=== PATIENT | male | born 1960 | race Caucasian/White ===

== ENCOUNTER 2017-11-12 14:02 | Inpatient (IN) | payer OTHER ==
[2017-11-12] MEDS: IBUPROFEN 600 MG TAB PO (16:30)
[2017-11-12] MEDS: PIPER-TAZO 3.375 GM IV (PMX) 100 ML IVPB (16:30)
[2017-11-12] MEDS: SODIUM CHLORIDE 0.9% 1L BAG IV* (16:30)
[2017-11-12 16:44] LABS: ADD MAN DIFF? NO
[2017-11-12 16:45] LABS: BASOPHIL # 0.1 10^3/ul (0.0-0.1); BASOPHILS % 0.4 % (0.0-2.0); EOSINOPHILS % 0.4 % (0.0-7.0); HEMOGLOBIN 12.5 g/dl (14.0-18.0); LYMPHOCYTES # 2.1 10^3/ul (0.8-2.9); LYMPHOCYTES % 18.5 % (15.0-51.0); MEAN CORPUSCULAR HEMOGLOBIN 30.5 pg (29.0-33.0); MEAN CORPUSCULAR HGB CONC 33.8 g/dl (32.0-37.0); MEAN CORPUSCULAR VOLUME 90.2 fl (82.0-101.0); MEAN PLATELET VOLUME 9.7 fl (7.4-10.4); MONOCYTE # 1.3 10^3/ul (0.3-0.9); MONOCYTES % 11.9 % (0.0-11.0); NEUTROPHIL # 7.6 10^3/ul (1.6-7.5); NEUTROPHILS % 68.5 % (39.0-77.0); PLATELET COUNT 252 10^3/UL (140-415); RED CELL DISTRIBUTION WIDTH 12.9 % (11.5-14.5)
[2017-11-12 16:45] LABS: WHITE BLOOD COUNT 11.2 10^3/ul (4.8-10.8)
[2017-11-12 17:04] LABS: INR 1.11; PARTIAL THROMBOPLASTIN TIME 31.5 Sec (25.0-35.0); PROTIME 14.5 Sec (11.9-14.9); PT RATIO 1.1
[2017-11-12 17:06] LABS: LACTIC ACID 1.2 mmol/L (0.5-2.0)
[2017-11-12 17:07] LABS: ALANINE AMINOTRANSFERASE 17 IU/L (13-69); ALBUMIN 4.1 g/dl (3.3-4.9); ALBUMIN/GLOBULIN RATIO 1.13; ALKALINE PHOSPHATASE 66 IU/L (42-121); ANION GAP 17 (8-16); ASPARTATE AMINO TRANSFERASE 12 IU/L (15-46); BILIRUBIN,INDIRECT 2.4 mg/dl (0-1.1); BILIRUBIN,TOTAL 2.4 mg/dl (0.2-1.3); BLOOD UREA NITROGEN 31 mg/dl (7-20); CALCIUM 9.1 mg/dl (8.4-10.2); CARBON DIOXIDE 27 mmol/L (21-31); CHLORIDE 99 mmol/L (97-110); CREATININE 1.29 mg/dl (0.61-1.24); GLUCOSE 174 mg/dl (70-220); LIPASE 104 U/L (23-300); POTASSIUM 4.6 mmol/L (3.5-5.1); SODIUM 138 mmol/L (135-144); TOTAL PROTEIN 7.7 g/dl (6.1-8.1)
[2017-11-12 17:34] LABS: TROPONIN-I < 0.012 ng/ml (0.000-0.120)
[2017-11-12 18:57] LABS: ADD UMIC NO; UR ASCORBIC ACID NEGATIVE (NEGATIVE); UR BILIRUBIN (Dip) NEGATIVE (NEGATIVE); UR BLOOD (Dip) NEGATIVE (NEGATIVE); UR CLARITY CLEAR (CLEAR); UR COLOR YELLOW (YELLOW); UR GLUCOSE (Dip) 2+ mg/dL (NEGATIVE); UR KETONES (Dip) NEGATIVE (NEGATIVE); UR LEUKOCYTE ESTERASE (Dip) NEGATIVE Leu/ul (NEGATIVE); UR NITRITE (Dip) NEGATIVE (NEGATIVE); UR SPECIFIC GRAVITY (Dip) 1.013 (1.003-1.030); UR TOTAL PROTEIN (Dip) NEGATIVE (NEGATIVE); UR UROBILINOGEN (Dip) NEGATIVE (NEGATIVE)
[2017-11-12] MEDS ORDERED: GLUCOSE GEL 15 GRAM TUBE PO ×2 (19:30)
[2017-11-12] MEDS ORDERED: DEXTROSE 50% 50 ML SYRINGE IV ×2 (19:30)
[2017-11-12] MEDS ORDERED: NACL 0.9% 3 ML SYG IV (19:30)
[2017-11-12] MEDS ORDERED: GLUCOSE GEL 15 GRAM TUBE BUCCAL (19:30)
[2017-11-12] MEDS ORDERED: GLUCAGON 1 MG INJ IM (19:30)
[2017-11-12] MEDS: metFORMIN 500 MG TAB PO ×2 (19:30→22:56)
[2017-11-12] MEDS ORDERED: INSULIN GLARGINE [LANtus] 3 ML PEN SC (20:00)
[2017-11-12] MEDS: INSULIN GLARGINE [LANtus] 3 ML PEN SC ×2 (20:00→23:47)
[2017-11-12] MEDS: INSULIN ASPART [NOVOLOG] 3 ML PEN SC (21:00)
[2017-11-12] MEDS ORDERED: COLLAGENASE 5 GM (UD JAR) TOP (21:30)
[2017-11-12] MEDS ORDERED: PENDING SANTYL ORDER FOR WOUND CARE XX (21:30)
[2017-11-12] MEDS: ATORVASTATIN 10 MG TAB PO (22:57)
[2017-11-12] MEDS: GABAPENTIN 100 MG CAP PO (22:58)
[2017-11-12] MEDS: COLLAGENASE 5 GM (UD JAR) TOP (22:59)
[2017-11-13] MEDS: HYDROCODONE/APAP (5/325) TAB PO (00:48)
[2017-11-13 05:55] LABS: ADD MAN DIFF? NO
[2017-11-13 06:03] LABS: BASOPHIL # 0.1 10^3/ul (0.0-0.1); BASOPHILS % 0.6 % (0.0-2.0); EOSINOPHILS # 0.3 10^3/ul (0.0-0.5); EOSINOPHILS % 2.9 % (0.0-7.0); HEMATOCRIT 36.3 % (42.0-52.0); HEMOGLOBIN 12.3 g/dl (14.0-18.0); LYMPHOCYTES # 2.6 10^3/ul (0.8-2.9); LYMPHOCYTES % 28.5 % (15.0-51.0); MEAN CORPUSCULAR HEMOGLOBIN 30.6 pg (29.0-33.0); MEAN CORPUSCULAR HGB CONC 33.9 g/dl (32.0-37.0); MEAN CORPUSCULAR VOLUME 90.3 fl (82.0-101.0); MEAN PLATELET VOLUME 9.7 fl (7.4-10.4); MONOCYTE # 1.1 10^3/ul (0.3-0.9); NEUTROPHIL # 5.1 10^3/ul (1.6-7.5); NEUTROPHILS % 55.8 % (39.0-77.0); PLATELET COUNT 237 10^3/UL (140-415); RED BLOOD COUNT 4.02 10^6/ul (4.70-6.10); RED CELL DISTRIBUTION WIDTH 12.7 % (11.5-14.5)
[2017-11-13 06:03] LABS: WHITE BLOOD COUNT 9.1 10^3/ul (4.8-10.8)
[2017-11-13 06:49] LABS: ALANINE AMINOTRANSFERASE 19 IU/L (13-69); ALBUMIN 3.9 g/dl (3.3-4.9); ALBUMIN/GLOBULIN RATIO 1.02; ALKALINE PHOSPHATASE 62 IU/L (42-121); ANION GAP 14 (8-16); ASPARTATE AMINO TRANSFERASE 13 IU/L (15-46); BLOOD UREA NITROGEN 23 mg/dl (7-20); CALCIUM 8.8 mg/dl (8.4-10.2); CARBON DIOXIDE 26 mmol/L (21-31); CHLORIDE 104 mmol/L (97-110); CREATININE 1.02 mg/dl (0.61-1.24); GLUCOSE 169 mg/dl (70-220); POTASSIUM 4.4 mmol/L (3.5-5.1); SODIUM 140 mmol/L (135-144); TOTAL PROTEIN 7.7 g/dl (6.1-8.1)
[2017-11-13 07:34] LABS: HEMOGLOBIN A1C 7.3 % (0-5.9)
[2017-11-13] MEDS: INSULIN ASPART [NOVOLOG] 3 ML PEN SC ×7 (08:15→20:35)
[2017-11-13] MEDS: ENOXAPARIN 40 MG/0.4 ML SYG SC (08:32)
[2017-11-13] MEDS: metFORMIN 500 MG TAB PO ×2 (08:40→17:20)
[2017-11-13] MEDS: GABAPENTIN 100 MG CAP PO ×3 (08:41→21:02)
[2017-11-13] MEDS: ASPIRIN 81 MG TAB PO (08:41)
[2017-11-13] MEDS: LISINOPRIL 5 MG TAB PO (08:42)
[2017-11-13] MEDS: COLLAGENASE 5 GM (UD JAR) TOP ×2 (09:00→23:44)
[2017-11-13 12:19] LABS: C-REACTIVE PROTEIN 6.8 mg/dl (0.0-0.9)
[2017-11-13 13:21] LABS: ERYTHROCYTE SEDIMENTATION RATE 28 mm/Hr (0-20)
[2017-11-13] MEDS ORDERED: VANCOMYCIN IV PER PHARMACY XX (15:30)
[2017-11-13] MEDS: PIPER-TAZO 3.375 GM IV (PMX) 100 ML IVPB (17:20)
[2017-11-13] MEDS: METOCLOPRAMIDE 10 MG TAB PO (17:21)
[2017-11-13] MEDS: VANCOMYCIN 1.5 GM in SOD CHLORIDE 0.9% 250 ML IVPB (18:23)
[2017-11-13] MEDS: INSULIN GLARGINE [LANtus] 3 ML PEN SC (20:22)
[2017-11-13] MEDS: ATORVASTATIN 10 MG TAB PO (21:02)
[2017-11-14] MEDS: PIPER-TAZO 3.375 GM IV (PMX) 100 ML IVPB ×4 (00:45→14:00)
[2017-11-14] MEDS: VANCOMYCIN 1.25 GM in SOD CHLORIDE 0.9% 250 ML IVPB ×2 (04:38→17:45)
[2017-11-14] MEDS: INSULIN ASPART [NOVOLOG] 3 ML PEN SC ×7 (07:54→21:00)
[2017-11-14] MEDS: metFORMIN 500 MG TAB PO ×2 (08:04→18:00)
[2017-11-14] MEDS: METOCLOPRAMIDE 10 MG TAB PO ×3 (08:04→18:00)
[2017-11-14] MEDS: ENOXAPARIN 40 MG/0.4 ML SYG SC (08:11)
[2017-11-14] MEDS: LISINOPRIL 5 MG TAB PO (08:13)
[2017-11-14] MEDS: ASPIRIN 81 MG TAB PO (08:14)
[2017-11-14] MEDS: GABAPENTIN 100 MG CAP PO ×3 (08:14→21:04)
[2017-11-14] MEDS: LIDOCAINE 1% (MPF) 5 ML VIAL SC ×2 (11:30→13:30)
[2017-11-14] MEDS: CEFTRIAXONE 1 GM/50 ML (PMX) 50 ML IVPB (15:04)
[2017-11-14] MEDS: POLYETHYLENE GLYCOL 17 GM PACKET PO (17:58)
[2017-11-14] MEDS: ATORVASTATIN 10 MG TAB PO (21:04)
[2017-11-14] MEDS: INSULIN GLARGINE [LANtus] 3 ML PEN SC (21:06)
[2017-11-15 05:18] LABS: VANCOMYCIN,TROUGH 13.8 ug/ml (10.0-20.0)
[2017-11-15] MEDS: VANCOMYCIN 1.25 GM in SOD CHLORIDE 0.9% 250 ML IVPB ×2 (05:32→18:35)
[2017-11-15] MEDS: HYDROCODONE/APAP (5/325) TAB PO (05:36)
[2017-11-15] MEDS: INSULIN ASPART [NOVOLOG] 3 ML PEN SC ×7 (08:00→21:00)
[2017-11-15] MEDS: ENOXAPARIN 40 MG/0.4 ML SYG SC (08:13)
[2017-11-15] MEDS: GABAPENTIN 100 MG CAP PO ×3 (08:15→21:19)
[2017-11-15] MEDS: LISINOPRIL 5 MG TAB PO (08:16)
[2017-11-15] MEDS: metFORMIN 500 MG TAB PO ×2 (08:16→17:42)
[2017-11-15] MEDS: METOCLOPRAMIDE 10 MG TAB PO ×3 (08:17→17:42)
[2017-11-15] MEDS: ASPIRIN 81 MG TAB PO (09:40)
[2017-11-15] MEDS: COLLAGENASE 5 GM (UD JAR) TOP (09:40)
[2017-11-15] MEDS: CIPROFLOXACIN 500 MG TAB PO (17:42)
[2017-11-15] MEDS: POLYETHYLENE GLYCOL 17 GM PACKET PO (18:40)
[2017-11-15] MEDS: ATORVASTATIN 10 MG TAB PO (21:19)
[2017-11-15] MEDS: CEFEPIME 1GM/50 ML (PMX) 50 ML IVPB (21:19)
[2017-11-15] MEDS: INSULIN GLARGINE [LANtus] 3 ML PEN SC (21:21)
[2017-11-16] MEDS: CIPROFLOXACIN 500 MG TAB PO ×2 (06:01→17:26)
[2017-11-16] MEDS: VANCOMYCIN 1.25 GM in SOD CHLORIDE 0.9% 250 ML IVPB ×2 (06:29→18:19)
[2017-11-16] MEDS: ENOXAPARIN 40 MG/0.4 ML SYG SC (08:10)
[2017-11-16] MEDS: INSULIN ASPART [NOVOLOG] 3 ML PEN SC ×7 (08:11→21:00)
[2017-11-16] MEDS: METOCLOPRAMIDE 10 MG TAB PO ×3 (08:13→17:26)
[2017-11-16] MEDS: metFORMIN 500 MG TAB PO ×2 (08:17→17:26)
[2017-11-16] MEDS: CEFEPIME 1GM/50 ML (PMX) 50 ML IVPB ×2 (08:17→21:28)
[2017-11-16] MEDS: ASPIRIN 81 MG TAB PO (08:17)
[2017-11-16] MEDS: GABAPENTIN 100 MG CAP PO ×3 (08:17→21:27)
[2017-11-16] MEDS: LISINOPRIL 5 MG TAB PO (08:19)
[2017-11-16] MEDS: COLLAGENASE 5 GM (UD JAR) TOP (08:19)
[2017-11-16] MEDS: POLYETHYLENE GLYCOL 17 GM PACKET PO (18:18)
[2017-11-16] MEDS: ATORVASTATIN 10 MG TAB PO (21:27)
[2017-11-16] MEDS: INSULIN GLARGINE [LANtus] 3 ML PEN SC (21:32)
[2017-11-17] MEDS: VANCOMYCIN 1.25 GM in SOD CHLORIDE 0.9% 250 ML IVPB (05:23)
[2017-11-17] MEDS: CIPROFLOXACIN 500 MG TAB PO (05:23)
[2017-11-17 06:34] LABS: BLOOD UREA NITROGEN 29 mg/dl (7-20)
[2017-11-17 06:34] LABS: CREATININE 1.02 mg/dl (0.61-1.24)
[2017-11-17] MEDS: INSULIN ASPART [NOVOLOG] 3 ML PEN SC ×6 (07:57→18:00)
[2017-11-17] MEDS: metFORMIN 500 MG TAB PO (08:29)
[2017-11-17] MEDS: METOCLOPRAMIDE 10 MG TAB PO ×2 (08:29→12:34)
[2017-11-17] MEDS: CEFEPIME 1GM/50 ML (PMX) 50 ML IVPB ×2 (08:29→16:03)
[2017-11-17] MEDS: LISINOPRIL 5 MG TAB PO (08:30)
[2017-11-17] MEDS: ASPIRIN 81 MG TAB PO (08:30)
[2017-11-17] MEDS: COLLAGENASE 5 GM (UD JAR) TOP (08:30)
[2017-11-17] MEDS: GABAPENTIN 100 MG CAP PO ×2 (08:30→12:34)
[2017-11-17] MEDS: ENOXAPARIN 40 MG/0.4 ML SYG SC (08:32)
== END 2017-11-17 18:15 | disposition home health service (06) | DRG 638 ==
LOC: E/R 14:02 → MS2 18:10
PROC: 02HV33Z Insertion of Infusion Device into Superior Vena Cava, Percutaneous Approach (ICD-10-PCS; principal; 2017-11-14)
DX: E11.69 Type 2 diabetes mellitus with other specified complication (principal); L97.425 Non-pressure chronic ulcer of left heel and midfoot with muscle involvement without evidence of necrosis; L97.415 Non-pressure chronic ulcer of right heel and midfoot with muscle involvement without evidence of necrosis; M86.9 Osteomyelitis, unspecified; L03.116 Cellulitis of left lower limb; E11.621 Type 2 diabetes mellitus with foot ulcer; E11.319 Type 2 diabetes mellitus with unspecified diabetic retinopathy without macular edema; E11.22 Type 2 diabetes mellitus with diabetic chronic kidney disease; E11.51 Type 2 diabetes mellitus with diabetic peripheral angiopathy without gangrene; N18.2 Chronic kidney disease, stage 2 (mild); I73.9 Peripheral vascular disease, unspecified; Z89.422 Acquired absence of other left toe(s); E11.42 Type 2 diabetes mellitus with diabetic polyneuropathy; Z89.432 Acquired absence of left foot; B96.5 Pseudomonas (aeruginosa) (mallei) (pseudomallei) as the cause of diseases classified elsewhere; B95.1 Streptococcus, group B, as the cause of diseases classified elsewhere
CPT/HCPCS: 36415; 36569; 71045; 73630; 73630-LT; 73718; 76937; 80053; 80202; 81003; 82565; 82962; 83036; 83605; 83690; 84484; 84520; 85025; 85610; 85651; 85730; 86140; 87040; 87070; 87086; 93005; 96374; 99285-25

== ENCOUNTER 2017-11-20 15:19 | Outpatient (CLI) | payer OTHER | END 2017-11-20 16:18 | disposition home or self-care (01) | LOC: DCC 15:19 | DX: E11.8 Type 2 diabetes mellitus with unspecified complications (principal); I10 Essential (primary) hypertension; N28.9 Disorder of kidney and ureter, unspecified; G62.9 Polyneuropathy, unspecified; I73.9 Peripheral vascular disease, unspecified; Z79.84 Long term (current) use of oral hypoglycemic drugs; Z79.82 Long term (current) use of aspirin; Z79.4 Long term (current) use of insulin | CPT/HCPCS: G0463 ==

== ENCOUNTER 2017-12-05 15:03 | Outpatient (CLI) | payer OTHER | END 2017-12-05 16:06 | disposition home or self-care (01) | LOC: DCC 15:03 | DX: E11.69 Type 2 diabetes mellitus with other specified complication (principal); M86.8X7 Other osteomyelitis, ankle and foot; N28.9 Disorder of kidney and ureter, unspecified; G62.9 Polyneuropathy, unspecified; I73.9 Peripheral vascular disease, unspecified; Z79.4 Long term (current) use of insulin; Z79.84 Long term (current) use of oral hypoglycemic drugs; Z79.82 Long term (current) use of aspirin | CPT/HCPCS: G0463 ==

== ENCOUNTER 2018-01-01 15:47 | Emergency (ER) | payer OTHER | END 2018-01-01 16:43 | disposition home or self-care (01) | LOC: E/R 15:47 | DX: Z45.2 Encounter for adjustment and management of vascular access device (principal); E11.9 Type 2 diabetes mellitus without complications; Z79.4 Long term (current) use of insulin; Z79.82 Long term (current) use of aspirin | CPT/HCPCS: 99282; Z7502 ==

== ENCOUNTER 2018-03-04 11:46 | Inpatient (IN) | payer OTHER ==
[2018-03-04] MEDS: PIPER-TAZO 3.375 GM IV (PMX) 100 ML IVPB (12:14)
[2018-03-04] MEDS: ACETAMINOPHEN 325 MG TAB PO (12:15)
[2018-03-04] MEDS: SODIUM CHLORIDE 0.9% 1L BAG IV* (12:15)
[2018-03-04] MEDS: ONDANSETRON 4 MG INJ IV (12:18)
[2018-03-04] MEDS: morphine 4 MG/ML VIAL IV (12:19)
[2018-03-04 12:21] LABS: ADD MAN DIFF? NO
[2018-03-04 12:28] LABS: BASOPHILS % 0.3 % (0.0-2.0); EOSINOPHILS % 0.3 % (0.0-7.0); HEMATOCRIT 30.9 % (42.0-52.0); HEMOGLOBIN 10.8 g/dl (14.0-18.0); LYMPHOCYTES % 21.7 % (15.0-51.0); MEAN CORPUSCULAR HEMOGLOBIN 30.6 pg (29.0-33.0); MEAN CORPUSCULAR VOLUME 87.5 fl (82.0-101.0); MEAN PLATELET VOLUME 9.8 fl (7.4-10.4); MONOCYTE # 1.1 10^3/ul (0.3-0.9); MONOCYTES % 11.8 % (0.0-11.0); NEUTROPHIL # 5.9 10^3/ul (1.6-7.5); NEUTROPHILS % 65.6 % (39.0-77.0); PLATELET COUNT 271 10^3/UL (140-415); RED BLOOD COUNT 3.53 10^6/ul (4.70-6.10); RED CELL DISTRIBUTION WIDTH 12.3 % (11.5-14.5)
[2018-03-04 12:45] LABS: INR 1.09; PROTIME 14.3 Sec (11.9-14.9); PT RATIO 1.1
[2018-03-04 12:46] LABS: ANION GAP 17 (8-16); BLOOD UREA NITROGEN 37 mg/dl (7-20); CALCIUM 9.5 mg/dl (8.4-10.2); CARBON DIOXIDE 28 mmol/L (21-31); CHLORIDE 99 mmol/L (97-110); CREATININE 2.09 mg/dl (0.61-1.24); GLUCOSE 269 mg/dl (70-220); PARTIAL THROMBOPLASTIN TIME 32.2 Sec (25.0-35.0); POTASSIUM 4.9 mmol/L (3.5-5.1); SODIUM 139 mmol/L (135-144)
[2018-03-04 12:50] LABS: LACTIC ACID 1.9 mmol/L (0.5-2.0)
[2018-03-04 12:58] LABS: TROPONIN-I < 0.012 ng/ml (0.000-0.120)
[2018-03-04] MEDS ORDERED: ACETAMINOPHEN 325 MG TAB PO (14:00)
[2018-03-04] MEDS ORDERED: ONDANSETRON 4 MG INJ IV (14:00)
[2018-03-04] MEDS ORDERED: NACL 0.9% 3 ML SYG IV (14:30)
[2018-03-04] MEDS: VANCOMYCIN 1 GM (PMX) 250 ML IVPB (14:30)
[2018-03-04] MEDS ORDERED: IBUPROFEN 600 MG TAB PO (14:30)
[2018-03-04] MEDS ORDERED: ZOLPIDEM 5 MG TAB PO (14:30)
[2018-03-04] MEDS ORDERED: ACETAMINOPHEN 1000MG/100ML IV 100 ML IVPB (15:00)
[2018-03-04] MEDS ORDERED: GLUCAGON 1 MG INJ IM (15:30)
[2018-03-04] MEDS ORDERED: GLUCOSE GEL 15 GRAM TUBE PO ×2 (15:30)
[2018-03-04] MEDS ORDERED: DEXTROSE 50% 50 ML SYRINGE IV ×2 (15:30)
[2018-03-04] MEDS ORDERED: GLUCOSE GEL 15 GRAM TUBE BUCCAL (15:30)
[2018-03-04] MEDS: SOD CHLORIDE 0.45% 1,000 ML IV (17:29)
[2018-03-04] MEDS: INSULIN ASPART [NOVOLOG] 3 ML PEN SC ×2 (18:00→21:22)
[2018-03-04 19:07] LABS: ADD UMIC NO; UR ASCORBIC ACID NEGATIVE (NEGATIVE); UR BILIRUBIN (Dip) NEGATIVE (NEGATIVE); UR BLOOD (Dip) NEGATIVE (NEGATIVE); UR CLARITY CLEAR (CLEAR); UR COLOR YELLOW (YELLOW); UR GLUCOSE (Dip) 1+ mg/dL (NEGATIVE); UR KETONES (Dip) NEGATIVE (NEGATIVE); UR LEUKOCYTE ESTERASE (Dip) NEGATIVE Leu/ul (NEGATIVE); UR NITRITE (Dip) NEGATIVE (NEGATIVE); UR SPECIFIC GRAVITY (Dip) 1.012 (1.003-1.030); UR TOTAL PROTEIN (Dip) NEGATIVE (NEGATIVE); UR UROBILINOGEN (Dip) NEGATIVE (NEGATIVE)
[2018-03-04] MEDS: POLYETHYLENE GLYCOL 17 GM PACKET PO ×2 (21:00→21:20)
[2018-03-04] MEDS: NA PHOSPHATE/BIPHOS 133 ML ENEMA PR (21:20)
[2018-03-04] MEDS: INSULIN GLARGINE [LANTus] (100 UNITS/ML) SYG SC (21:23)
[2018-03-04] MEDS: HEPARIN 5,000 UNIT/0.5 ML VIAL SC (21:24)
[2018-03-04] MEDS: ATORVASTATIN 10 MG TAB PO (21:27)
[2018-03-04] MEDS: METOCLOPRAMIDE 10 MG TAB PO (21:28)
[2018-03-05] MEDS: SOD CHLORIDE 0.45% 1,000 ML IV ×3 (03:49→17:09)
[2018-03-05 06:48] LABS: ADD MAN DIFF? NO
[2018-03-05 07:06] LABS: WHITE BLOOD COUNT 6.1 10^3/ul (4.8-10.8)
[2018-03-05 07:06] LABS: BASOPHILS % 0.5 % (0.0-2.0); EOSINOPHILS # 0.3 10^3/ul (0.0-0.5); EOSINOPHILS % 4.2 % (0.0-7.0); HEMATOCRIT 29.2 % (42.0-52.0); HEMOGLOBIN 10.4 g/dl (14.0-18.0); LYMPHOCYTES # 1.6 10^3/ul (0.8-2.9); LYMPHOCYTES % 26.1 % (15.0-51.0); MEAN CORPUSCULAR HEMOGLOBIN 31.3 pg (29.0-33.0); MEAN CORPUSCULAR HGB CONC 35.6 g/dl (32.0-37.0); MONOCYTE # 0.7 10^3/ul (0.3-0.9); MONOCYTES % 11.3 % (0.0-11.0); NEUTROPHIL # 3.5 10^3/ul (1.6-7.5); NEUTROPHILS % 57.7 % (39.0-77.0); PLATELET COUNT 252 10^3/UL (140-415); RED BLOOD COUNT 3.32 10^6/ul (4.70-6.10)
[2018-03-05 07:13] LABS: HEMOGLOBIN A1C 8.3 % (0-5.9)
[2018-03-05 07:16] LABS: ALANINE AMINOTRANSFERASE 12 IU/L (13-69); ALBUMIN 3.7 g/dl (3.3-4.9); ALBUMIN/GLOBULIN RATIO 1.08; ALKALINE PHOSPHATASE 49 IU/L (42-121); ANION GAP 13 (8-16); ASPARTATE AMINO TRANSFERASE 13 IU/L (15-46); BILIRUBIN,INDIRECT 1.5 mg/dl (0-1.1); BILIRUBIN,TOTAL 1.5 mg/dl (0.2-1.3); BLOOD UREA NITROGEN 32 mg/dl (7-20); CALCIUM 8.8 mg/dl (8.4-10.2); CARBON DIOXIDE 29 mmol/L (21-31); CHLORIDE 104 mmol/L (97-110); CREATININE 1.45 mg/dl (0.61-1.24); GLUCOSE 215 mg/dl (70-220); POTASSIUM 4.6 mmol/L (3.5-5.1); SODIUM 141 mmol/L (135-144); TOTAL PROTEIN 7.1 g/dl (6.1-8.1)
[2018-03-05] MEDS: METOCLOPRAMIDE 10 MG TAB PO ×3 (08:19→17:35)
[2018-03-05] MEDS: INSULIN ASPART [NOVOLOG] 3 ML PEN SC ×6 (08:23→17:37)
[2018-03-05] MEDS: HEPARIN 5,000 UNIT/0.5 ML VIAL SC (08:23)
[2018-03-05] MEDS: POLYETHYLENE GLYCOL 17 GM PACKET PO (08:23)
[2018-03-05] MEDS: NA PHOSPHATE/BIPHOS 133 ML ENEMA PR (08:23)
[2018-03-05] MEDS ORDERED: INSULIN GLARGINE [LANTus] (100 UNITS/ML) SYG SC (20:00)
[2018-03-06] MEDS ORDERED: ACCU-CHEK XX (02:00)
== END 2018-03-05 18:55 | disposition home or self-care (01) | DRG 684 ==
LOC: E/R 11:46 → 2NE 13:59
DX: N17.9 Acute kidney failure, unspecified (principal); E11.22 Type 2 diabetes mellitus with diabetic chronic kidney disease; N18.2 Chronic kidney disease, stage 2 (mild); K59.00 Constipation, unspecified; R50.9 Fever, unspecified; E11.21 Type 2 diabetes mellitus with diabetic nephropathy; E11.319 Type 2 diabetes mellitus with unspecified diabetic retinopathy without macular edema; I12.9 Hypertensive chronic kidney disease with stage 1 through stage 4 chronic kidney disease, or unspecified chronic kidney disease; Z79.4 Long term (current) use of insulin; Z89.422 Acquired absence of other left toe(s); Z79.84 Long term (current) use of oral hypoglycemic drugs
CPT/HCPCS: 36415; 71045; 73630-50; 74176; 76705; 80048; 80053; 81003; 82962; 83036; 83605; 84443; 84484; 85025; 85610; 85730; 87040; 87045; 87086; 93005; 96374; 96375; 99291-25

== ENCOUNTER 2018-03-30 20:12 | Emergency (ER) | payer OTHER ==
[2018-03-30] MEDS: morphine 4 MG/ML VIAL IV (23:03)
[2018-03-30] MEDS: ONDANSETRON 4 MG INJ IV (23:03)
[2018-03-30 23:04] LABS: ADD MAN DIFF? NO
[2018-03-30] MEDS: SOD CHLORIDE 0.9% 500 ML IV (23:04)
[2018-03-30 23:07] LABS: ADD UMIC YES; UR ASCORBIC ACID NEGATIVE (NEGATIVE); UR BILIRUBIN (Dip) NEGATIVE (NEGATIVE); UR BLOOD (Dip) NEGATIVE (NEGATIVE); UR CLARITY CLEAR (CLEAR); UR COLOR YELLOW (YELLOW); UR GLUCOSE (Dip) 3+ mg/dL (NEGATIVE); UR KETONES (Dip) TRACE mg/dL (NEGATIVE); UR LEUKOCYTE ESTERASE (Dip) NEGATIVE Leu/ul (NEGATIVE); UR MUCUS FEW /HPF (NONE SEEN); UR NITRITE (Dip) NEGATIVE (NEGATIVE); UR RBC 0 /HPF (0-5); UR SPECIFIC GRAVITY (Dip) 1.022 (1.003-1.030); UR TOTAL PROTEIN (Dip) 1+ mg/dl (NEGATIVE); UR UROBILINOGEN (Dip) 1+ mg/dL (NEGATIVE); UR WBC 1 /HPF (0-5)
[2018-03-30 23:08] LABS: BASOPHIL # 0.1 10^3/ul (0.0-0.1); BASOPHILS % 0.6 % (0.0-2.0); EOSINOPHILS # 0.1 10^3/ul (0.0-0.5); EOSINOPHILS % 0.8 % (0.0-7.0); HEMATOCRIT 30.3 % (42.0-52.0); HEMOGLOBIN 10.3 g/dl (14.0-18.0); LYMPHOCYTES # 1.6 10^3/ul (0.8-2.9); LYMPHOCYTES % 18.5 % (15.0-51.0); MEAN CORPUSCULAR HEMOGLOBIN 30.4 pg (29.0-33.0); MEAN CORPUSCULAR VOLUME 89.4 fl (82.0-101.0); MEAN PLATELET VOLUME 9.4 fl (7.4-10.4); MONOCYTE # 0.9 10^3/ul (0.3-0.9); MONOCYTES % 10.2 % (0.0-11.0); NEUTROPHILS % 69.6 % (39.0-77.0); PLATELET COUNT 366 10^3/UL (140-415); RED BLOOD COUNT 3.39 10^6/ul (4.70-6.10); RED CELL DISTRIBUTION WIDTH 12.6 % (11.5-14.5)
[2018-03-30 23:08] LABS: WHITE BLOOD COUNT 8.6 10^3/ul (4.8-10.8)
[2018-03-30 23:27] LABS: ALANINE AMINOTRANSFERASE 37 IU/L (13-69); ALBUMIN 4.4 g/dl (3.3-4.9); ALBUMIN/GLOBULIN RATIO 0.89; ALKALINE PHOSPHATASE 87 IU/L (42-121); ANION GAP 17 (8-16); ASPARTATE AMINO TRANSFERASE 16 IU/L (15-46); BLOOD UREA NITROGEN 40 mg/dl (7-20); CALCIUM 9.8 mg/dl (8.4-10.2); CARBON DIOXIDE 29 mmol/L (21-31); CHLORIDE 99 mmol/L (97-110); CREATININE 1.72 mg/dl (0.61-1.24); GLUCOSE 259 mg/dl (70-220); LIPASE 76 U/L (23-300); POTASSIUM 4.9 mmol/L (3.5-5.1); SODIUM 140 mmol/L (135-144); TOTAL PROTEIN 9.3 g/dl (6.1-8.1)
== END 2018-03-31 01:41 | disposition home or self-care (01) ==
LOC: E/R 03-31 01:41
DX: R10.9 Unspecified abdominal pain (principal); E11.9 Type 2 diabetes mellitus without complications; I10 Essential (primary) hypertension; Z79.82 Long term (current) use of aspirin; Z79.84 Long term (current) use of oral hypoglycemic drugs
CPT/HCPCS: 36415; 74176; 80053; 81001; 83690; 85025; 87086; 96374; 96375; 99285-25

== ENCOUNTER 2018-06-12 13:20 | Inpatient (IN) | payer OTHER ==
[2018-06-12] MEDS: ONDANSETRON 4 MG INJ IV (14:54)
[2018-06-12] MEDS: SOD CHLORIDE 0.9% 1,000 ML IV ×2 (14:54→20:15)
[2018-06-12 15:16] LABS: ADD MAN DIFF? NO
[2018-06-12 15:17] LABS: BASOPHIL # 0.1 10^3/ul (0.0-0.1); BASOPHILS % 0.4 % (0.0-2.0); EOSINOPHILS % 0.3 % (0.0-7.0); HEMATOCRIT 30.3 % (42.0-52.0); HEMOGLOBIN 9.8 g/dl (14.0-18.0); LYMPHOCYTES # 1.9 10^3/ul (0.8-2.9); MEAN CORPUSCULAR HEMOGLOBIN 29.3 pg (29.0-33.0); MEAN CORPUSCULAR HGB CONC 32.3 g/dl (32.0-37.0); MEAN CORPUSCULAR VOLUME 90.4 fl (82.0-101.0); MEAN PLATELET VOLUME 9.7 fl (7.4-10.4); MONOCYTE # 1.3 10^3/ul (0.3-0.9); MONOCYTES % 10.3 % (0.0-11.0); NEUTROPHIL # 9.1 10^3/ul (1.6-7.5); NEUTROPHILS % 73.4 % (39.0-77.0); PLATELET COUNT 449 10^3/UL (140-415); RED BLOOD COUNT 3.35 10^6/ul (4.70-6.10); RED CELL DISTRIBUTION WIDTH 12.5 % (11.5-14.5)
[2018-06-12 15:17] LABS: WHITE BLOOD COUNT 12.4 10^3/ul (4.8-10.8)
[2018-06-12 15:36] LABS: ALANINE AMINOTRANSFERASE 10 IU/L (13-69); ALBUMIN 4.2 g/dl (3.3-4.9); ALBUMIN/GLOBULIN RATIO 0.79; ALKALINE PHOSPHATASE 87 IU/L (42-121); ANION GAP 18 (5-13); ASPARTATE AMINO TRANSFERASE 22 IU/L (15-46); BILIRUBIN,INDIRECT 1.2 mg/dl (0-1.1); BILIRUBIN,TOTAL 1.2 mg/dl (0.2-1.3); BLOOD UREA NITROGEN 46 mg/dl (7-20); CALCIUM 10.5 mg/dl (8.4-10.2); CARBON DIOXIDE 25 mmol/L (21-31); CHLORIDE 96 mmol/L (97-110); CREATININE 2.15 mg/dl (0.61-1.24); Estimated GFR 32 mL/min (>60); GLUCOSE 230 mg/dl (70-220); LIPASE 42 U/L (23-300); POTASSIUM 4.9 mmol/L (3.5-5.1); SODIUM 139 mmol/L (135-144); TOTAL PROTEIN 9.5 g/dl (6.1-8.1)
[2018-06-12 15:38] LABS: INR 1.24; PROTIME 15.8 Sec (11.9-14.9); PT RATIO 1.2
[2018-06-12 15:39] LABS: PARTIAL THROMBOPLASTIN TIME 39.9 Sec (23.0-35.0)
[2018-06-12 15:46] LABS: ADD UMIC YES; UR ASCORBIC ACID NEGATIVE (NEGATIVE); UR BILIRUBIN (Dip) NEGATIVE (NEGATIVE); UR BLOOD (Dip) 1+ mg/dL (NEGATIVE); UR CLARITY SLIGHTLY CLOUDY (CLEAR); UR COLOR YELLOW (YELLOW); UR GLUCOSE (Dip) 3+ mg/dL (NEGATIVE); UR KETONES (Dip) 1+ mg/dL (NEGATIVE); UR LEUKOCYTE ESTERASE (Dip) NEGATIVE Leu/ul (NEGATIVE); UR MUCUS FEW /HPF (NONE SEEN); UR NITRITE (Dip) NEGATIVE (NEGATIVE); UR RBC 0 /HPF (0-5); UR SPECIFIC GRAVITY (Dip) 1.021 (1.003-1.030); UR TOTAL PROTEIN (Dip) 2+ mg/dl (NEGATIVE); UR UROBILINOGEN (Dip) 1+ mg/dL (NEGATIVE); UR WBC 2 /HPF (0-5)
[2018-06-12 15:48] LABS: TROPONIN-I < 0.012 ng/ml (0.000-0.120)
[2018-06-12] MEDS ORDERED: ONDANSETRON 4 MG INJ IV (17:30)
[2018-06-12] MEDS ORDERED: ACETAMINOPHEN 325 MG TAB PO (17:30)
[2018-06-12] MEDS ORDERED: NACL 0.9% 3 ML SYG IV (18:00)
[2018-06-12 18:37] LABS: LACTIC ACID 1.2 mmol/L (0.5-2.0)
[2018-06-12 18:49] LABS: TROPONIN-I < 0.012 ng/ml (0.000-0.120)
[2018-06-12 18:55] LABS: FREE T4 (FREE THYROXINE) 1.47 ng/dl (0.64-1.79)
[2018-06-12] MEDS ORDERED: DEXTROSE 50% 50 ML SYRINGE IV ×2 (19:00)
[2018-06-12] MEDS ORDERED: GLUCAGON 1 MG INJ IM (19:00)
[2018-06-12] MEDS ORDERED: GLUCOSE GEL 15 GRAM TUBE PO ×2 (19:00)
[2018-06-12] MEDS ORDERED: GLUCOSE GEL 15 GRAM TUBE BUCCAL (19:00)
[2018-06-12] MEDS: LEVOFLOXACIN 500MG/D5W (PMX) 100 ML IVPB (20:15)
[2018-06-12] MEDS: GABAPENTIN 100 MG CAP PO (20:55)
[2018-06-12] MEDS: ATORVASTATIN 20 MG TAB PO (20:55)
[2018-06-12] MEDS: PANTOPRAZOLE (EC) 40 MG TAB PO (20:56)
[2018-06-12] MEDS: INSULIN ASPART [NOVOLOG] 3 ML PEN SC (21:00)
[2018-06-12 23:02] LABS: TROPONIN-I 0.014 ng/ml (0.000-0.120)
[2018-06-12] MEDS: INSULIN GLARGINE [LANTus] (100 UNITS/ML) SYG SC (23:09)
[2018-06-13] MEDS: ACCU-CHEK XX (02:00)
[2018-06-13] MEDS: ACETAMINOPHEN 325 MG TAB PO ×3 (02:45→23:44)
[2018-06-13] MEDS: SOD CHLORIDE 0.9% 500 ML IV (02:46)
[2018-06-13 06:09] LABS: ADD MAN DIFF? NO
[2018-06-13 06:11] LABS: BASOPHILS % 0.3 % (0.0-2.0); EOSINOPHILS # 0.1 10^3/ul (0.0-0.5); EOSINOPHILS % 1.2 % (0.0-7.0); HEMATOCRIT 23.2 % (42.0-52.0); HEMOGLOBIN 7.6 g/dl (14.0-18.0); LYMPHOCYTES # 1.8 10^3/ul (0.8-2.9); MEAN CORPUSCULAR HEMOGLOBIN 29.6 pg (29.0-33.0); MEAN CORPUSCULAR HGB CONC 32.8 g/dl (32.0-37.0); MEAN CORPUSCULAR VOLUME 90.3 fl (82.0-101.0); MEAN PLATELET VOLUME 9.2 fl (7.4-10.4); MONOCYTES % 12.9 % (0.0-11.0); NEUTROPHIL # 4.5 10^3/ul (1.6-7.5); NEUTROPHILS % 61.1 % (39.0-77.0); PLATELET COUNT 312 10^3/UL (140-415); RED BLOOD COUNT 2.57 10^6/ul (4.70-6.10); RED CELL DISTRIBUTION WIDTH 12.5 % (11.5-14.5)
[2018-06-13 06:11] LABS: WHITE BLOOD COUNT 7.4 10^3/ul (4.8-10.8)
[2018-06-13 06:37] LABS: ALANINE AMINOTRANSFERASE 14 IU/L (13-69); ALBUMIN 3.3 g/dl (3.3-4.9); ALBUMIN/GLOBULIN RATIO 0.86; ALKALINE PHOSPHATASE 55 IU/L (42-121); ANION GAP 9 (5-13); ASPARTATE AMINO TRANSFERASE 17 IU/L (15-46); BLOOD UREA NITROGEN 38 mg/dl (7-20); CALCIUM 9.3 mg/dl (8.4-10.2); CARBON DIOXIDE 26 mmol/L (21-31); CHLORIDE 103 mmol/L (97-110); CREATININE 1.51 mg/dl (0.61-1.24); Estimated GFR 48 mL/min (>60); GLUCOSE 94 mg/dl (70-220); PHOSPHORUS 3.7 mg/dl (2.5-4.9); POTASSIUM 4.2 mmol/L (3.5-5.1); SODIUM 138 mmol/L (135-144); TOTAL PROTEIN 7.1 g/dl (6.1-8.1)
[2018-06-13] MEDS: PANTOPRAZOLE (EC) 40 MG TAB PO (06:37)
[2018-06-13 06:48] LABS: HEMOGLOBIN A1C 8.2 % (0-5.9)
[2018-06-13] MEDS: SOD CHLORIDE 0.9% 1,000 ML IV ×4 (07:18→23:39)
[2018-06-13] MEDS: INSULIN ASPART [NOVOLOG] 3 ML PEN SC ×7 (08:00→21:00)
[2018-06-13] MEDS: ASPIRIN 81 MG TAB PO (08:13)
[2018-06-13] MEDS: GABAPENTIN 100 MG CAP PO ×3 (08:13→21:02)
[2018-06-13] MEDS: TAMSULOSIN (SR) 0.4 MG CAP PO (08:13)
[2018-06-13] MEDS: LISINOPRIL 5 MG TAB PO (10:24)
[2018-06-13 16:14] LABS: IRON 19 ug/dl (35-150)
[2018-06-13 16:23] LABS: % IRON SATURATION 8 % SAT (22-52); TOTAL IRON BINDING CAPACITY 225 ug/dl (241-421)
[2018-06-13] MEDS: LEVOFLOXACIN 500 MG TAB PO (18:30)
[2018-06-13] MEDS: INSULIN GLARGINE [LANTus] (100 UNITS/ML) SYG SC ×2 (20:00→22:23)
[2018-06-13] MEDS: ATORVASTATIN 20 MG TAB PO (21:01)
[2018-06-14] MEDS: ACCU-CHEK XX (02:00)
[2018-06-14] MEDS: ACETAMINOPHEN 325 MG TAB PO ×4 (02:15→20:43)
[2018-06-14 06:06] LABS: ADD MAN DIFF? NO
[2018-06-14 06:07] LABS: BASOPHILS % 0.4 % (0.0-2.0); EOSINOPHILS # 0.1 10^3/ul (0.0-0.5); EOSINOPHILS % 1.5 % (0.0-7.0); HEMATOCRIT 23.5 % (42.0-52.0); HEMOGLOBIN 7.8 g/dl (14.0-18.0); LYMPHOCYTES # 1.7 10^3/ul (0.8-2.9); LYMPHOCYTES % 21.2 % (15.0-51.0); MEAN CORPUSCULAR HEMOGLOBIN 29.1 pg (29.0-33.0); MEAN CORPUSCULAR HGB CONC 33.2 g/dl (32.0-37.0); MEAN CORPUSCULAR VOLUME 87.7 fl (82.0-101.0); MEAN PLATELET VOLUME 9.3 fl (7.4-10.4); MONOCYTE # 0.8 10^3/ul (0.3-0.9); MONOCYTES % 9.6 % (0.0-11.0); NEUTROPHIL # 5.5 10^3/ul (1.6-7.5); NEUTROPHILS % 67.1 % (39.0-77.0); PLATELET COUNT 304 10^3/UL (140-415); RED BLOOD COUNT 2.68 10^6/ul (4.70-6.10); RED CELL DISTRIBUTION WIDTH 12.3 % (11.5-14.5)
[2018-06-14 06:07] LABS: WHITE BLOOD COUNT 8.1 10^3/ul (4.8-10.8)
[2018-06-14] MEDS: PANTOPRAZOLE (EC) 40 MG TAB PO (06:35)
[2018-06-14] MEDS ORDERED: VANCOMYCIN IV PER PHARMACY XX (07:00)
[2018-06-14 07:18] LABS: ANION GAP 9 (5-13); BLOOD UREA NITROGEN 22 mg/dl (7-20); CALCIUM 8.9 mg/dl (8.4-10.2); CARBON DIOXIDE 27 mmol/L (21-31); CHLORIDE 101 mmol/L (97-110); CREATININE 1.25 mg/dl (0.61-1.24); Estimated GFR 60 mL/min (>60); GLUCOSE 151 mg/dl (70-220); MAGNESIUM 1.8 mg/dl (1.7-2.5); PHOSPHORUS 3.3 mg/dl (2.5-4.9); POTASSIUM 4.4 mmol/L (3.5-5.1); SODIUM 137 mmol/L (135-144)
[2018-06-14] MEDS: LISINOPRIL 5 MG TAB PO (08:21)
[2018-06-14] MEDS: TAMSULOSIN (SR) 0.4 MG CAP PO (08:21)
[2018-06-14] MEDS: ASPIRIN 81 MG TAB PO (08:22)
[2018-06-14] MEDS: GABAPENTIN 100 MG CAP PO ×3 (08:22→20:40)
[2018-06-14] MEDS: LEVOFLOXACIN 250 MG TAB PO (08:24)
[2018-06-14] MEDS: INSULIN ASPART [NOVOLOG] 3 ML PEN SC ×7 (08:26→20:41)
[2018-06-14] MEDS: METOCLOPRAMIDE 10 MG INJ IV (08:27)
[2018-06-14] MEDS: VANCOMYCIN 1.5 GM in SOD CHLORIDE 0.9% 250 ML IVPB (09:29)
[2018-06-14] MEDS: SOD CHLORIDE 0.9% 1,000 ML IV ×2 (09:58→15:22)
[2018-06-14] MEDS ORDERED: HEPARIN 5,000 UNIT/0.5 ML VIAL ×2 (14:28→20:34)
[2018-06-14] MEDS: HEPARIN 5,000 UNIT/1 ML VIAL SC ×2 (14:36→22:45)
[2018-06-14] MEDS: ATORVASTATIN 20 MG TAB PO (20:40)
[2018-06-14] MEDS: VANCOMYCIN 1 GM 250 ML IVPB (20:42)
[2018-06-14] MEDS: INSULIN GLARGINE [LANTus] (100 UNITS/ML) SYG SC (22:44)
[2018-06-15] MEDS: SOD CHLORIDE 0.9% 1,000 ML IV ×2 (01:17→11:44)
[2018-06-15] MEDS: ACCU-CHEK XX (02:00)
[2018-06-15] MEDS ORDERED: HEPARIN 5,000 UNIT/0.5 ML VIAL ×2 (04:36→13:41)
[2018-06-15] MEDS: PANTOPRAZOLE (EC) 40 MG TAB PO (05:49)
[2018-06-15] MEDS: LEVOFLOXACIN 250 MG TAB PO (05:49)
[2018-06-15] MEDS: HEPARIN 5,000 UNIT/1 ML VIAL SC ×3 (05:57→22:25)
[2018-06-15 06:46] LABS: ADD MAN DIFF? NO
[2018-06-15 06:48] LABS: WHITE BLOOD COUNT 7.1 10^3/ul (4.8-10.8)
[2018-06-15 06:48] LABS: BASOPHILS % 0.4 % (0.0-2.0); EOSINOPHILS # 0.1 10^3/ul (0.0-0.5); EOSINOPHILS % 1.7 % (0.0-7.0); HEMATOCRIT 24.6 % (42.0-52.0); HEMOGLOBIN 8.3 g/dl (14.0-18.0); LYMPHOCYTES # 1.5 10^3/ul (0.8-2.9); LYMPHOCYTES % 20.6 % (15.0-51.0); MEAN CORPUSCULAR HEMOGLOBIN 29.5 pg (29.0-33.0); MEAN CORPUSCULAR HGB CONC 33.7 g/dl (32.0-37.0); MEAN CORPUSCULAR VOLUME 87.5 fl (82.0-101.0); MEAN PLATELET VOLUME 9.3 fl (7.4-10.4); MONOCYTE # 0.7 10^3/ul (0.3-0.9); MONOCYTES % 9.7 % (0.0-11.0); NEUTROPHIL # 4.8 10^3/ul (1.6-7.5); NEUTROPHILS % 67.3 % (39.0-77.0); PLATELET COUNT 299 10^3/UL (140-415); RED BLOOD COUNT 2.81 10^6/ul (4.70-6.10); RED CELL DISTRIBUTION WIDTH 12.3 % (11.5-14.5)
[2018-06-15 07:14] LABS: ANION GAP 9 (5-13); BLOOD UREA NITROGEN 21 mg/dl (7-20); CALCIUM 9.1 mg/dl (8.4-10.2); CARBON DIOXIDE 26 mmol/L (21-31); CHLORIDE 103 mmol/L (97-110); CREATININE 1.16 mg/dl (0.61-1.24); Estimated GFR > 60 mL/min (>60); GLUCOSE 136 mg/dl (70-220); POTASSIUM 4.2 mmol/L (3.5-5.1); SODIUM 138 mmol/L (135-144)
[2018-06-15] MEDS ORDERED: VANCOMYCIN 1 GM 250 ML IVPB (08:00)
[2018-06-15] MEDS: INSULIN ASPART [NOVOLOG] 3 ML PEN SC ×7 (08:00→20:18)
[2018-06-15] MEDS: TAMSULOSIN (SR) 0.4 MG CAP PO (08:31)
[2018-06-15] MEDS: LISINOPRIL 5 MG TAB PO (08:32)
[2018-06-15] MEDS: ASPIRIN 81 MG TAB PO (08:32)
[2018-06-15] MEDS: GABAPENTIN 100 MG CAP PO ×3 (08:32→20:07)
[2018-06-15] MEDS: VANCOMYCIN 1 GM 250 ML IVPB ×2 (08:32→22:23)
[2018-06-15] MEDS: ACETAMINOPHEN 325 MG TAB PO ×2 (08:34→20:12)
[2018-06-15] MEDS: ATORVASTATIN 20 MG TAB PO (20:07)
[2018-06-15] MEDS: INSULIN GLARGINE [LANTus] (100 UNITS/ML) SYG SC (20:10)
[2018-06-16] MEDS: ACCU-CHEK XX (02:00)
[2018-06-16] MEDS: SOD CHLORIDE 0.9% 1,000 ML IV ×3 (03:34→20:07)
[2018-06-16 05:53] LABS: ADD MAN DIFF? NO
[2018-06-16 06:00] LABS: BASOPHILS % 0.6 % (0.0-2.0); EOSINOPHILS # 0.2 10^3/ul (0.0-0.5); EOSINOPHILS % 2.4 % (0.0-7.0); HEMATOCRIT 24.1 % (42.0-52.0); LYMPHOCYTES # 1.7 10^3/ul (0.8-2.9); LYMPHOCYTES % 24.8 % (15.0-51.0); MEAN CORPUSCULAR HEMOGLOBIN 29.3 pg (29.0-33.0); MEAN CORPUSCULAR HGB CONC 33.2 g/dl (32.0-37.0); MEAN CORPUSCULAR VOLUME 88.3 fl (82.0-101.0); MEAN PLATELET VOLUME 9.6 fl (7.4-10.4); MONOCYTE # 0.7 10^3/ul (0.3-0.9); NEUTROPHIL # 4.3 10^3/ul (1.6-7.5); NEUTROPHILS % 61.9 % (39.0-77.0); PLATELET COUNT 335 10^3/UL (140-415); RED BLOOD COUNT 2.73 10^6/ul (4.70-6.10); RED CELL DISTRIBUTION WIDTH 12.4 % (11.5-14.5)
[2018-06-16] MEDS: PANTOPRAZOLE (EC) 40 MG TAB PO (06:07)
[2018-06-16] MEDS: LEVOFLOXACIN 250 MG TAB PO (06:07)
[2018-06-16] MEDS: HEPARIN 5,000 UNIT/1 ML VIAL SC ×3 (06:09→22:08)
[2018-06-16 07:36] LABS: ANION GAP 9 (5-13); BLOOD UREA NITROGEN 18 mg/dl (7-20); CARBON DIOXIDE 28 mmol/L (21-31); CHLORIDE 101 mmol/L (97-110); CREATININE 1.23 mg/dl (0.61-1.24); Estimated GFR > 60 mL/min (>60); GLUCOSE 167 mg/dl (70-220); POTASSIUM 4.5 mmol/L (3.5-5.1); SODIUM 138 mmol/L (135-144)
[2018-06-16] MEDS: LISINOPRIL 5 MG TAB PO (08:26)
[2018-06-16] MEDS: GABAPENTIN 100 MG CAP PO ×3 (08:26→22:03)
[2018-06-16] MEDS: VANCOMYCIN 1 GM 250 ML IVPB ×2 (08:27→20:07)
[2018-06-16] MEDS: TAMSULOSIN (SR) 0.4 MG CAP PO (08:27)
[2018-06-16] MEDS: ASPIRIN 81 MG TAB PO (08:28)
[2018-06-16] MEDS: INSULIN ASPART [NOVOLOG] 3 ML PEN SC ×7 (08:30→20:13)
[2018-06-16] MEDS: SENNA TAB PO (08:35)
[2018-06-16] MEDS: ATORVASTATIN 20 MG TAB PO (20:07)
[2018-06-16] MEDS: INSULIN GLARGINE [LANTus] (100 UNITS/ML) SYG SC (20:12)
[2018-06-17] MEDS: ACCU-CHEK XX (02:00)
[2018-06-17] MEDS: ACETAMINOPHEN 325 MG TAB PO ×2 (02:16→16:53)
[2018-06-17] MEDS: SOD CHLORIDE 0.9% 1,000 ML IV ×2 (04:38→17:52)
[2018-06-17] MEDS: HEPARIN 5,000 UNIT/1 ML VIAL SC ×3 (05:47→20:43)
[2018-06-17] MEDS: LEVOFLOXACIN 250 MG TAB PO (05:47)
[2018-06-17] MEDS: PANTOPRAZOLE (EC) 40 MG TAB PO (05:47)
[2018-06-17 06:53] LABS: ADD MAN DIFF? NO
[2018-06-17 07:03] LABS: WHITE BLOOD COUNT 6.2 10^3/ul (4.8-10.8)
[2018-06-17 07:03] LABS: BASOPHILS % 0.3 % (0.0-2.0); EOSINOPHILS # 0.2 10^3/ul (0.0-0.5); EOSINOPHILS % 2.8 % (0.0-7.0); HEMATOCRIT 21.8 % (42.0-52.0); HEMOGLOBIN 7.3 g/dl (14.0-18.0); LYMPHOCYTES # 1.6 10^3/ul (0.8-2.9); LYMPHOCYTES % 25.9 % (15.0-51.0); MEAN CORPUSCULAR HEMOGLOBIN 29.1 pg (29.0-33.0); MEAN CORPUSCULAR HGB CONC 33.5 g/dl (32.0-37.0); MEAN CORPUSCULAR VOLUME 86.9 fl (82.0-101.0); MEAN PLATELET VOLUME 9.2 fl (7.4-10.4); MONOCYTE # 0.7 10^3/ul (0.3-0.9); MONOCYTES % 10.9 % (0.0-11.0); NEUTROPHIL # 3.7 10^3/ul (1.6-7.5); NEUTROPHILS % 59.8 % (39.0-77.0); PLATELET COUNT 302 10^3/UL (140-415); RED BLOOD COUNT 2.51 10^6/ul (4.70-6.10); RED CELL DISTRIBUTION WIDTH 12.3 % (11.5-14.5)
[2018-06-17 07:50] LABS: MAGNESIUM 1.5 mg/dl (1.7-2.5)
[2018-06-17 07:50] LABS: PHOSPHORUS 3.5 mg/dl (2.5-4.9)
[2018-06-17 07:51] LABS: ANION GAP 9 (5-13); BLOOD UREA NITROGEN 15 mg/dl (7-20); CALCIUM 8.8 mg/dl (8.4-10.2); CARBON DIOXIDE 27 mmol/L (21-31); CHLORIDE 101 mmol/L (97-110); CREATININE 1.18 mg/dl (0.61-1.24); Estimated GFR > 60 mL/min (>60); GLUCOSE 168 mg/dl (70-220); POTASSIUM 4.1 mmol/L (3.5-5.1); SODIUM 137 mmol/L (135-144)
[2018-06-17] MEDS: INSULIN ASPART [NOVOLOG] 3 ML PEN SC ×7 (08:10→20:43)
[2018-06-17] MEDS: GABAPENTIN 100 MG CAP PO ×3 (08:18→20:33)
[2018-06-17] MEDS: LISINOPRIL 5 MG TAB PO (08:18)
[2018-06-17] MEDS: ASPIRIN 81 MG TAB PO (08:18)
[2018-06-17] MEDS: VANCOMYCIN 1 GM 250 ML IVPB ×2 (08:18→20:33)
[2018-06-17] MEDS: TAMSULOSIN (SR) 0.4 MG CAP PO (08:20)
[2018-06-17] MEDS: SENNA TAB PO (09:04)
[2018-06-17] MEDS: LIDOCAINE 1% (MPF) 5 ML VIAL SC (16:00)
[2018-06-17] MEDS: MAGNESIUM SULFATE 2 GM/50 ML 50 ML IVPB (16:45)
[2018-06-17] MEDS: ATORVASTATIN 20 MG TAB PO (20:33)
[2018-06-17] MEDS: INSULIN GLARGINE [LANTus] (100 UNITS/ML) SYG SC (20:42)
[2018-06-18] MEDS: ACETAMINOPHEN 325 MG TAB PO ×2 (01:13→17:36)
[2018-06-18] MEDS: ACCU-CHEK XX ×2 (02:00→23:41)
[2018-06-18] MEDS: LEVOFLOXACIN 250 MG TAB PO (05:25)
[2018-06-18] MEDS: PANTOPRAZOLE (EC) 40 MG TAB PO (05:26)
[2018-06-18] MEDS: HEPARIN 5,000 UNIT/1 ML VIAL SC ×3 (05:30→21:14)
[2018-06-18 06:45] LABS: ADD MAN DIFF? NO
[2018-06-18 07:02] LABS: BASOPHILS % 0.6 % (0.0-2.0); EOSINOPHILS # 0.2 10^3/ul (0.0-0.5); EOSINOPHILS % 3.4 % (0.0-7.0); HEMATOCRIT 23.2 % (42.0-52.0); HEMOGLOBIN 7.9 g/dl (14.0-18.0); LYMPHOCYTES # 1.4 10^3/ul (0.8-2.9); LYMPHOCYTES % 27.5 % (15.0-51.0); MEAN CORPUSCULAR HEMOGLOBIN 29.6 pg (29.0-33.0); MEAN CORPUSCULAR HGB CONC 34.1 g/dl (32.0-37.0); MEAN CORPUSCULAR VOLUME 86.9 fl (82.0-101.0); MEAN PLATELET VOLUME 9.3 fl (7.4-10.4); MONOCYTE # 0.6 10^3/ul (0.3-0.9); NEUTROPHIL # 2.8 10^3/ul (1.6-7.5); NEUTROPHILS % 56.3 % (39.0-77.0); PLATELET COUNT 291 10^3/UL (140-415); RED BLOOD COUNT 2.67 10^6/ul (4.70-6.10); RED CELL DISTRIBUTION WIDTH 12.5 % (11.5-14.5)
[2018-06-18 07:28] LABS: MAGNESIUM 1.9 mg/dl (1.7-2.5)
[2018-06-18 07:28] LABS: PHOSPHORUS 3.7 mg/dl (2.5-4.9)
[2018-06-18 07:31] LABS: ANION GAP 10 (5-13); BLOOD UREA NITROGEN 15 mg/dl (7-20); CALCIUM 8.9 mg/dl (8.4-10.2); CARBON DIOXIDE 26 mmol/L (21-31); CHLORIDE 101 mmol/L (97-110); CREATININE 1.02 mg/dl (0.61-1.24); Estimated GFR > 60 mL/min (>60); GLUCOSE 173 mg/dl (70-220); SODIUM 137 mmol/L (135-144)
[2018-06-18] MEDS: GABAPENTIN 100 MG CAP PO ×3 (08:25→20:22)
[2018-06-18] MEDS: LISINOPRIL 5 MG TAB PO (08:25)
[2018-06-18] MEDS: ASPIRIN 81 MG TAB PO (08:25)
[2018-06-18] MEDS: TAMSULOSIN (SR) 0.4 MG CAP PO (08:25)
[2018-06-18] MEDS: INSULIN ASPART [NOVOLOG] 3 ML PEN SC ×7 (08:50→20:22)
[2018-06-18 09:26] LABS: VANCOMYCIN,TROUGH 15.6 ug/ml (10.0-20.0)
[2018-06-18] MEDS: VANCOMYCIN 1 GM 250 ML IVPB ×2 (10:14→20:22)
[2018-06-18] MEDS: SOD CHLORIDE 0.9% 1,000 ML IV ×2 (16:04→20:23)
[2018-06-18] MEDS: SENNA TAB PO (17:36)
[2018-06-18] MEDS: ATORVASTATIN 20 MG TAB PO (20:22)
[2018-06-18] MEDS: INSULIN GLARGINE [LANTus] (100 UNITS/ML) SYG SC (20:25)
[2018-06-19] MEDS: SOD CHLORIDE 0.9% 1,000 ML IV ×3 (05:14→22:27)
[2018-06-19] MEDS: PANTOPRAZOLE (EC) 40 MG TAB PO (05:14)
[2018-06-19] MEDS: LEVOFLOXACIN 250 MG TAB PO (05:14)
[2018-06-19] MEDS: HEPARIN 5,000 UNIT/1 ML VIAL SC ×3 (05:17→20:54)
[2018-06-19] MEDS: VANCOMYCIN 1 GM 250 ML IVPB ×2 (08:36→20:50)
[2018-06-19] MEDS: ASPIRIN 81 MG TAB PO (08:37)
[2018-06-19] MEDS: GABAPENTIN 100 MG CAP PO ×3 (08:37→20:50)
[2018-06-19] MEDS: TAMSULOSIN (SR) 0.4 MG CAP PO (08:37)
[2018-06-19] MEDS: LISINOPRIL 5 MG TAB PO (08:37)
[2018-06-19] MEDS: INSULIN ASPART [NOVOLOG] 3 ML PEN SC ×7 (09:26→20:53)
[2018-06-19] MEDS: ACETAMINOPHEN 325 MG TAB PO (12:00)
[2018-06-19] MEDS: ATORVASTATIN 20 MG TAB PO (20:50)
[2018-06-19] MEDS: INSULIN GLARGINE [LANTus] (100 UNITS/ML) SYG SC (20:54)
[2018-06-20] MEDS: ACCU-CHEK XX (02:00)
[2018-06-20] MEDS: PANTOPRAZOLE (EC) 40 MG TAB PO (05:24)
[2018-06-20] MEDS: LEVOFLOXACIN 250 MG TAB PO (05:24)
[2018-06-20] MEDS: ACETAMINOPHEN 325 MG TAB PO ×3 (05:28→21:07)
[2018-06-20] MEDS: HEPARIN 5,000 UNIT/1 ML VIAL SC ×3 (05:31→21:25)
[2018-06-20 06:22] LABS: ADD MAN DIFF? NO
[2018-06-20 06:25] LABS: BASOPHILS % 0.4 % (0.0-2.0); EOSINOPHILS # 0.2 10^3/ul (0.0-0.5); EOSINOPHILS % 4.2 % (0.0-7.0); HEMATOCRIT 23.1 % (42.0-52.0); HEMOGLOBIN 7.8 g/dl (14.0-18.0); LYMPHOCYTES # 1.7 10^3/ul (0.8-2.9); LYMPHOCYTES % 31.1 % (15.0-51.0); MEAN CORPUSCULAR HEMOGLOBIN 29.7 pg (29.0-33.0); MEAN CORPUSCULAR HGB CONC 33.8 g/dl (32.0-37.0); MEAN CORPUSCULAR VOLUME 87.8 fl (82.0-101.0); MEAN PLATELET VOLUME 8.7 fl (7.4-10.4); MONOCYTE # 0.7 10^3/ul (0.3-0.9); MONOCYTES % 12.8 % (0.0-11.0); NEUTROPHIL # 2.8 10^3/ul (1.6-7.5); NEUTROPHILS % 51.3 % (39.0-77.0); PLATELET COUNT 337 10^3/UL (140-415); RED BLOOD COUNT 2.63 10^6/ul (4.70-6.10); RED CELL DISTRIBUTION WIDTH 12.4 % (11.5-14.5)
[2018-06-20 06:25] LABS: WHITE BLOOD COUNT 5.5 10^3/ul (4.8-10.8)
[2018-06-20 07:04] LABS: ANION GAP 9 (5-13); BLOOD UREA NITROGEN 16 mg/dl (7-20); CALCIUM 9.1 mg/dl (8.4-10.2); CARBON DIOXIDE 27 mmol/L (21-31); CHLORIDE 102 mmol/L (97-110); CREATININE 0.98 mg/dl (0.61-1.24); Estimated GFR > 60 mL/min (>60); GLUCOSE 163 mg/dl (70-220); POTASSIUM 4.1 mmol/L (3.5-5.1); SODIUM 138 mmol/L (135-144)
[2018-06-20] MEDS: GABAPENTIN 100 MG CAP PO ×3 (08:21→21:06)
[2018-06-20] MEDS: VANCOMYCIN 1 GM 250 ML IVPB ×2 (08:21→21:06)
[2018-06-20] MEDS: ASPIRIN 81 MG TAB PO (08:21)
[2018-06-20] MEDS: TAMSULOSIN (SR) 0.4 MG CAP PO (08:21)
[2018-06-20] MEDS: LISINOPRIL 5 MG TAB PO (08:21)
[2018-06-20] MEDS: SENNA TAB PO (08:26)
[2018-06-20] MEDS: INSULIN ASPART [NOVOLOG] 3 ML PEN SC ×7 (08:30→21:00)
[2018-06-20] MEDS: SOD CHLORIDE 0.9% 1,000 ML IV ×2 (12:38→16:04)
[2018-06-20] MEDS: ALTEPLASE (CATHFLO) 2 MG INJ CATHETER (12:52)
[2018-06-20 20:04] LABS: IMMEDIATE SPIN CROSSMATCH 1 1
[2018-06-20] MEDS: ATORVASTATIN 20 MG TAB PO (21:06)
[2018-06-20] MEDS: SOD CHLORIDE 0.9% 250 ML IV* (21:08)
[2018-06-20] MEDS: INSULIN GLARGINE [LANTus] (100 UNITS/ML) SYG SC (21:21)
[2018-06-21] MEDS: SOD CHLORIDE 0.9% 1,000 ML IV ×3 (01:58→21:36)
[2018-06-21] MEDS: ACCU-CHEK XX (02:00)
[2018-06-21] MEDS: LEVOFLOXACIN 250 MG TAB PO (05:29)
[2018-06-21] MEDS: PANTOPRAZOLE (EC) 40 MG TAB PO (05:30)
[2018-06-21] MEDS: HEPARIN 5,000 UNIT/1 ML VIAL SC ×3 (05:40→21:42)
[2018-06-21 06:49] LABS: ADD MAN DIFF? NO
[2018-06-21 06:53] LABS: BASOPHIL # 0.1 10^3/ul (0.0-0.1); BASOPHILS % 0.7 % (0.0-2.0); EOSINOPHILS # 0.4 10^3/ul (0.0-0.5); EOSINOPHILS % 5.6 % (0.0-7.0); HEMATOCRIT 27.3 % (42.0-52.0); HEMOGLOBIN 9.2 g/dl (14.0-18.0); LYMPHOCYTES # 2.3 10^3/ul (0.8-2.9); LYMPHOCYTES % 34.6 % (15.0-51.0); MEAN CORPUSCULAR HEMOGLOBIN 29.9 pg (29.0-33.0); MEAN CORPUSCULAR HGB CONC 33.7 g/dl (32.0-37.0); MEAN CORPUSCULAR VOLUME 88.6 fl (82.0-101.0); MEAN PLATELET VOLUME 8.8 fl (7.4-10.4); MONOCYTE # 0.7 10^3/ul (0.3-0.9); MONOCYTES % 10.8 % (0.0-11.0); NEUTROPHIL # 3.3 10^3/ul (1.6-7.5); PLATELET COUNT 407 10^3/UL (140-415); RED BLOOD COUNT 3.08 10^6/ul (4.70-6.10); RED CELL DISTRIBUTION WIDTH 12.5 % (11.5-14.5)
[2018-06-21 06:53] LABS: WHITE BLOOD COUNT 6.8 10^3/ul (4.8-10.8)
[2018-06-21 07:26] LABS: ANION GAP 10 (5-13); BLOOD UREA NITROGEN 17 mg/dl (7-20); CALCIUM 9.3 mg/dl (8.4-10.2); CARBON DIOXIDE 26 mmol/L (21-31); CHLORIDE 103 mmol/L (97-110); CREATININE 1.02 mg/dl (0.61-1.24); Estimated GFR > 60 mL/min (>60); GLUCOSE 162 mg/dl (70-220); POTASSIUM 4.3 mmol/L (3.5-5.1); SODIUM 139 mmol/L (135-144)
[2018-06-21] MEDS: INSULIN ASPART [NOVOLOG] 3 ML PEN SC ×8 (08:00→21:00)
[2018-06-21] MEDS: TAMSULOSIN (SR) 0.4 MG CAP PO (08:17)
[2018-06-21] MEDS: LISINOPRIL 5 MG TAB PO (08:17)
[2018-06-21] MEDS: GABAPENTIN 100 MG CAP PO ×3 (08:17→21:24)
[2018-06-21] MEDS: ASPIRIN 81 MG TAB PO (08:18)
[2018-06-21 09:18] LABS: VANCOMYCIN,TROUGH 17.8 ug/ml (10.0-20.0)
[2018-06-21] MEDS: VANCOMYCIN 1 GM 250 ML IVPB (09:45)
[2018-06-21] MEDS: VANCOMYCIN 750 MG in SOD CHLORIDE 0.9% 150 ML IVPB (21:22)
[2018-06-21] MEDS: ATORVASTATIN 20 MG TAB PO (21:24)
[2018-06-21] MEDS: INSULIN GLARGINE [LANTus] (100 UNITS/ML) SYG SC (21:27)
[2018-06-22] MEDS ORDERED: INSULIN ASPART [NOVOLOG] 3 ML PEN SC (01:00)
[2018-06-22] MEDS: Insulin NOVOLOG SS MODERATE Algorithm(NPO/TPN/ENTERAL FEEDS) SC ×4 (01:17→12:38)
[2018-06-22] MEDS: ACCU-CHEK XX (02:00)
[2018-06-22] MEDS: DEXTROSE 5%-0.45% NACL 1,000 ML IV (04:43)
[2018-06-22] MEDS: PANTOPRAZOLE (EC) 40 MG TAB PO (05:17)
[2018-06-22] MEDS: LEVOFLOXACIN 250 MG TAB PO (05:17)
[2018-06-22] MEDS: HEPARIN 5,000 UNIT/1 ML VIAL SC ×3 (05:18→21:03)
[2018-06-22] MEDS ORDERED: DEXAMETHASONE 4 MG/ML 1 ML INJ (06:55)
[2018-06-22] MEDS ORDERED: DESFLURANE 15 MIN (07:00)
[2018-06-22] MEDS ORDERED: GLYCOPYRROLATE 0.4 MG INJ (07:00)
[2018-06-22] MEDS ORDERED: hydrALAzine 20 MG INJ IV (07:30)
[2018-06-22] MEDS ORDERED: EPHEDrine SULFATE 50 MG/5 ML SYG IV (07:30)
[2018-06-22] MEDS ORDERED: ALBUTEROL 0.083% (NEB) 2.5 MG/3 ML AMP HHN (07:30)
[2018-06-22] MEDS ORDERED: DIPHENHYDRAMINE 50 MG INJ IV (07:30)
[2018-06-22] MEDS ORDERED: ONDANSETRON 4 MG INJ IV (07:30)
[2018-06-22] MEDS ORDERED: MEPERIDINE 25 MG INJ IV (07:30)
[2018-06-22] MEDS ORDERED: LABETALOL HCL 20MG INJ IV (07:30)
[2018-06-22] MEDS ORDERED: IPRATROPIUM (NEB) 0.5 MG/2.5 ML AMP HHN (07:30)
[2018-06-22] MEDS ORDERED: HYDROmorphONE 1 MG/5 ML IV SYRINGE IV ×3 (07:30)
[2018-06-22] MEDS ORDERED: FENTAnyl 50 MCG/ML VIAL IV ×3 (07:30)
[2018-06-22] MEDS ORDERED: TRIMETHOBENZAMIDE 100 MG/ML VIAL IM (07:30)
[2018-06-22] MEDS ORDERED: MIDAZOLAM 1 MG/ML 2 ML INJ IV (07:30)
[2018-06-22] MEDS ORDERED: OXYCODONE/ACETAMINOPHEN (5/325) TAB PO ×2 (07:30)
[2018-06-22] MEDS ORDERED: ROCURONIUM 50 MG INJ (07:34)
[2018-06-22] MEDS ORDERED: NEOSTIGMINE 3 MG/3 ML SYRINGE (07:34)
[2018-06-22] MEDS ORDERED: CEFAZOLIN 1 GM INJ (07:34)
[2018-06-22] MEDS ORDERED: PROPOFOL 20 ML (07:34)
[2018-06-22] MEDS ORDERED: FENTAnyl 50 MCG/ML VIAL ×2 (07:35→08:42)
[2018-06-22] MEDS ORDERED: ONDANSETRON 4 MG INJ (07:35)
[2018-06-22] MEDS ORDERED: MIDAZOLAM 1 MG/ML 2 ML INJ (07:35)
[2018-06-22] MEDS ORDERED: DEXAMETHASONE 4 MG/ML 5 ML INJ (07:36)
[2018-06-22] MEDS: INSULIN ASPART [NOVOLOG] 3 ML PEN SC ×5 (08:00→20:24)
[2018-06-22] MEDS ORDERED: SODIUM CL BACTERIOSTATIC 30 ML INJ (08:18)
[2018-06-22] MEDS: POLYMYXIN/BACITRACIN 1L IRRIG (08:32)
[2018-06-22] MEDS: POLYMYXIN B 500000 UNIT INJ (08:32)
[2018-06-22] MEDS: VANCOMYCIN 1 GM INJ (08:32)
[2018-06-22] MEDS: BACITRACIN 50000 UNITS INJ (08:32)
[2018-06-22] MEDS: BUPIVACAINE 0.5% (SDV) 30 ML INJ (08:32)
[2018-06-22] MEDS: GABAPENTIN 100 MG CAP PO ×3 (09:00→20:20)
[2018-06-22] MEDS: LISINOPRIL 5 MG TAB PO (10:41)
[2018-06-22] MEDS: VANCOMYCIN 750 MG in SOD CHLORIDE 0.9% 150 ML IVPB ×2 (10:41→20:51)
[2018-06-22] MEDS: ASPIRIN 81 MG TAB PO (10:41)
[2018-06-22] MEDS: TAMSULOSIN (SR) 0.4 MG CAP PO (10:41)
[2018-06-22] MEDS: ATORVASTATIN 20 MG TAB PO (20:20)
[2018-06-22] MEDS: INSULIN GLARGINE [LANTus] (100 UNITS/ML) SYG SC (20:23)
[2018-06-22] MEDS: SENNA TAB PO (20:24)
[2018-06-22] MEDS: ACETAMINOPHEN 325 MG TAB PO (22:22)
[2018-06-23] MEDS: ACCU-CHEK XX (02:00)
[2018-06-23] MEDS: LEVOFLOXACIN 500 MG TAB PO (05:11)
[2018-06-23] MEDS: HEPARIN 5,000 UNIT/1 ML VIAL SC ×3 (05:18→21:31)
[2018-06-23] MEDS: PANTOPRAZOLE (EC) 40 MG TAB PO (05:20)
[2018-06-23 06:06] LABS: ADD MAN DIFF? NO
[2018-06-23 06:10] LABS: BASOPHILS % 0.6 % (0.0-2.0); EOSINOPHILS # 0.2 10^3/ul (0.0-0.5); EOSINOPHILS % 3.8 % (0.0-7.0); HEMATOCRIT 24.3 % (42.0-52.0); LYMPHOCYTES # 1.5 10^3/ul (0.8-2.9); LYMPHOCYTES % 28.4 % (15.0-51.0); MEAN CORPUSCULAR HEMOGLOBIN 29.3 pg (29.0-33.0); MEAN CORPUSCULAR HGB CONC 32.9 g/dl (32.0-37.0); MEAN PLATELET VOLUME 8.6 fl (7.4-10.4); MONOCYTE # 0.5 10^3/ul (0.3-0.9); MONOCYTES % 9.8 % (0.0-11.0); PLATELET COUNT 417 10^3/UL (140-415); RED BLOOD COUNT 2.73 10^6/ul (4.70-6.10); RED CELL DISTRIBUTION WIDTH 12.7 % (11.5-14.5)
[2018-06-23 06:10] LABS: WHITE BLOOD COUNT 5.3 10^3/ul (4.8-10.8)
[2018-06-23 06:46] LABS: ANION GAP 11 (5-13); BLOOD UREA NITROGEN 15 mg/dl (7-20); CALCIUM 9.1 mg/dl (8.4-10.2); CARBON DIOXIDE 30 mmol/L (21-31); CHLORIDE 98 mmol/L (97-110); Estimated GFR > 60 mL/min (>60); GLUCOSE 176 mg/dl (70-220); MAGNESIUM 1.7 mg/dl (1.7-2.5); PHOSPHORUS 4.4 mg/dl (2.5-4.9); POTASSIUM 4.4 mmol/L (3.5-5.1); SODIUM 139 mmol/L (135-144)
[2018-06-23] MEDS: TAMSULOSIN (SR) 0.4 MG CAP PO (08:31)
[2018-06-23] MEDS: ASPIRIN 81 MG TAB PO (08:31)
[2018-06-23] MEDS: LISINOPRIL 5 MG TAB PO (08:31)
[2018-06-23] MEDS: GABAPENTIN 100 MG CAP PO ×3 (08:31→20:49)
[2018-06-23] MEDS: INSULIN ASPART [NOVOLOG] 3 ML PEN SC ×7 (08:35→20:49)
[2018-06-23 09:25] LABS: VANCOMYCIN,TROUGH 15.4 ug/ml (10.0-20.0)
[2018-06-23] MEDS: VANCOMYCIN 750 MG in SOD CHLORIDE 0.9% 150 ML IVPB ×2 (09:25→20:49)
[2018-06-23] MEDS: ACETAMINOPHEN 325 MG TAB PO (09:27)
[2018-06-23] MEDS: ATORVASTATIN 20 MG TAB PO (20:49)
[2018-06-23] MEDS: INSULIN GLARGINE [LANTus] (100 UNITS/ML) SYG SC (20:56)
[2018-06-23] MEDS: SENNA TAB PO (21:28)
[2018-06-23] MEDS: HYDROCORTISONE 1% 28 GM CR TOP (23:00)
[2018-06-23] MEDS ORDERED: HYDROCORTISONE 1% 28 GM CR TOP (23:00)
[2018-06-24] MEDS: ACCU-CHEK XX (01:30)
[2018-06-24] MEDS: LEVOFLOXACIN 500 MG TAB PO (05:02)
[2018-06-24] MEDS: ACETAMINOPHEN 325 MG TAB PO ×2 (05:02→15:36)
[2018-06-24] MEDS: PANTOPRAZOLE (EC) 40 MG TAB PO (05:02)
[2018-06-24] MEDS: HEPARIN 5,000 UNIT/1 ML VIAL SC ×3 (05:05→21:17)
[2018-06-24 05:42] LABS: ADD MAN DIFF? NO
[2018-06-24 05:51] LABS: WHITE BLOOD COUNT 5.6 10^3/ul (4.8-10.8)
[2018-06-24 05:51] LABS: BASOPHILS % 0.7 % (0.0-2.0); EOSINOPHILS # 0.3 10^3/ul (0.0-0.5); EOSINOPHILS % 4.8 % (0.0-7.0); HEMATOCRIT 24.9 % (42.0-52.0); HEMOGLOBIN 8.3 g/dl (14.0-18.0); LYMPHOCYTES # 1.6 10^3/ul (0.8-2.9); LYMPHOCYTES % 28.4 % (15.0-51.0); MEAN CORPUSCULAR HEMOGLOBIN 29.3 pg (29.0-33.0); MEAN CORPUSCULAR HGB CONC 33.3 g/dl (32.0-37.0); MEAN PLATELET VOLUME 8.9 fl (7.4-10.4); MONOCYTE # 0.5 10^3/ul (0.3-0.9); MONOCYTES % 9.2 % (0.0-11.0); NEUTROPHIL # 3.2 10^3/ul (1.6-7.5); NEUTROPHILS % 56.7 % (39.0-77.0); PLATELET COUNT 433 10^3/UL (140-415); RED BLOOD COUNT 2.83 10^6/ul (4.70-6.10); RED CELL DISTRIBUTION WIDTH 12.5 % (11.5-14.5)
[2018-06-24 06:22] LABS: ANION GAP 8 (5-13); BLOOD UREA NITROGEN 18 mg/dl (7-20); CALCIUM 8.9 mg/dl (8.4-10.2); CARBON DIOXIDE 32 mmol/L (21-31); CHLORIDE 96 mmol/L (97-110); CREATININE 1.01 mg/dl (0.61-1.24); Estimated GFR > 60 mL/min (>60); GLUCOSE 201 mg/dl (70-220); POTASSIUM 4.4 mmol/L (3.5-5.1); SODIUM 136 mmol/L (135-144)
[2018-06-24] MEDS: INSULIN ASPART [NOVOLOG] 3 ML PEN SC ×7 (08:39→21:00)
[2018-06-24] MEDS: TAMSULOSIN (SR) 0.4 MG CAP PO (09:17)
[2018-06-24] MEDS: ASPIRIN 81 MG TAB PO (09:17)
[2018-06-24] MEDS: GABAPENTIN 100 MG CAP PO ×3 (09:17→21:14)
[2018-06-24] MEDS: LISINOPRIL 5 MG TAB PO (09:17)
[2018-06-24] MEDS: VANCOMYCIN 750 MG in SOD CHLORIDE 0.9% 150 ML IVPB ×2 (09:19→21:15)
[2018-06-24] MEDS: SENNA TAB PO (15:35)
[2018-06-24] MEDS: INSULIN GLARGINE [LANTus] (100 UNITS/ML) SYG SC (20:24)
[2018-06-24] MEDS: ATORVASTATIN 20 MG TAB PO (21:14)
[2018-06-25] MEDS: METOCLOPRAMIDE 10 MG INJ IV ×2 (00:45→12:00)
[2018-06-25] MEDS: ACCU-CHEK XX (02:00)
[2018-06-25 06:42] LABS: ADD MAN DIFF? NO
[2018-06-25] MEDS: LEVOFLOXACIN 500 MG TAB PO (06:54)
[2018-06-25] MEDS: PANTOPRAZOLE (EC) 40 MG TAB PO (06:54)
[2018-06-25] MEDS: HEPARIN 5,000 UNIT/1 ML VIAL SC ×2 (06:57→13:11)
[2018-06-25 07:09] LABS: BASOPHILS % 0.2 % (0.0-2.0); EOSINOPHILS # 0.2 10^3/ul (0.0-0.5); EOSINOPHILS % 2.2 % (0.0-7.0); HEMATOCRIT 25.6 % (42.0-52.0); HEMOGLOBIN 8.5 g/dl (14.0-18.0); LYMPHOCYTES # 0.9 10^3/ul (0.8-2.9); MEAN CORPUSCULAR HEMOGLOBIN 29.5 pg (29.0-33.0); MEAN CORPUSCULAR HGB CONC 33.2 g/dl (32.0-37.0); MEAN CORPUSCULAR VOLUME 88.9 fl (82.0-101.0); MEAN PLATELET VOLUME 8.7 fl (7.4-10.4); MONOCYTE # 0.5 10^3/ul (0.3-0.9); MONOCYTES % 6.1 % (0.0-11.0); NEUTROPHIL # 6.6 10^3/ul (1.6-7.5); NEUTROPHILS % 80.1 % (39.0-77.0); PLATELET COUNT 454 10^3/UL (140-415); RED BLOOD COUNT 2.88 10^6/ul (4.70-6.10); RED CELL DISTRIBUTION WIDTH 12.5 % (11.5-14.5)
[2018-06-25 07:09] LABS: WHITE BLOOD COUNT 8.3 10^3/ul (4.8-10.8)
[2018-06-25 07:26] LABS: ANION GAP 11 (5-13); BLOOD UREA NITROGEN 20 mg/dl (7-20); CALCIUM 9.2 mg/dl (8.4-10.2); CARBON DIOXIDE 28 mmol/L (21-31); CHLORIDE 96 mmol/L (97-110); CREATININE 1.09 mg/dl (0.61-1.24); Estimated GFR > 60 mL/min (>60); GLUCOSE 166 mg/dl (70-220); MAGNESIUM 1.7 mg/dl (1.7-2.5); PHOSPHORUS 3.6 mg/dl (2.5-4.9); POTASSIUM 4.4 mmol/L (3.5-5.1); SODIUM 135 mmol/L (135-144)
[2018-06-25] MEDS: INSULIN ASPART [NOVOLOG] 3 ML PEN SC ×4 (08:08→12:16)
[2018-06-25] MEDS: GABAPENTIN 100 MG CAP PO ×2 (08:09→13:10)
[2018-06-25] MEDS: TAMSULOSIN (SR) 0.4 MG CAP PO (08:09)
[2018-06-25] MEDS: ASPIRIN 81 MG TAB PO (08:09)
[2018-06-25] MEDS: LISINOPRIL 5 MG TAB PO (08:10)
[2018-06-25] MEDS: VANCOMYCIN 750 MG in SOD CHLORIDE 0.9% 150 ML IVPB (08:10)
[2018-06-26] MEDS ORDERED: VANCOMYCIN 750 MG (PMX) 250 ML IVPB (09:00)
== END 2018-06-25 16:30 | disposition home health service (06) | DRG 854 ==
LOC: E/R 13:20 → 2NE 17:05
PROVIDERS: Internal Medicine
PROC: 0QTL0ZZ Resection of Right Tarsal, Open Approach (ICD-10-PCS; principal; 2018-06-22 07:30)
PROC: 0SHM08Z Insertion of Spacer into Right Metatarsal-Phalangeal Joint, Open Approach (ICD-10-PCS; 2018-06-22 07:30)
PROC: 02H633Z Insertion of Infusion Device into Right Atrium, Percutaneous Approach (ICD-10-PCS; 2018-06-22 07:39)
PROC: 30233N1 Transfusion of Nonautologous Red Blood Cells into Peripheral Vein, Percutaneous Approach (ICD-10-PCS; 2018-06-22 07:39)
DX: A41.9 Sepsis, unspecified organism (principal); L03.115 Cellulitis of right lower limb; N17.9 Acute kidney failure, unspecified; M86.8X7 Other osteomyelitis, ankle and foot; I12.9 Hypertensive chronic kidney disease with stage 1 through stage 4 chronic kidney disease, or unspecified chronic kidney disease; N18.9 Chronic kidney disease, unspecified; E11.610 Type 2 diabetes mellitus with diabetic neuropathic arthropathy; E11.51 Type 2 diabetes mellitus with diabetic peripheral angiopathy without gangrene; Z79.4 Long term (current) use of insulin; E11.319 Type 2 diabetes mellitus with unspecified diabetic retinopathy without macular edema; Q66.89 Other specified congenital deformities of feet; E11.69 Type 2 diabetes mellitus with other specified complication; N20.0 Calculus of kidney; E86.0 Dehydration
CPT/HCPCS: 36415; 36430; 36569; 71045; 73630; 73718; 73721; 76775; 76937; 80048; 80053; 80202; 81001; 82728; 82962; 83036; 83540; 83605; 83690; 83735; 84100; 84439; 84443; 84484; 85025; 85610; 85730; 86850; 86900; 86901; 86920; 87040; 87070; 87075; 87086; 87102; 87400; 88304; 88311; 93005; 93306; 93922; 96374; 97110; 97116; 97161; 97164; 97530; 99291-25

== ENCOUNTER 2018-08-27 13:14 | Day surgery (SDC) | payer OTHER ==
[2018-08-27 14:16] LABS: ADD MAN DIFF? NO
[2018-08-27 14:19] LABS: WHITE BLOOD COUNT 5.5 10^3/ul (4.8-10.8)
[2018-08-27 14:19] LABS: BASOPHILS % 0.5 % (0.0-2.0); EOSINOPHILS # 0.2 10^3/ul (0.0-0.5); EOSINOPHILS % 2.7 % (0.0-7.0); HEMATOCRIT 31.3 % (42.0-52.0); HEMOGLOBIN 10.6 g/dl (14.0-18.0); LYMPHOCYTES # 2.3 10^3/ul (0.8-2.9); LYMPHOCYTES % 40.8 % (15.0-51.0); MEAN CORPUSCULAR HEMOGLOBIN 30.5 pg (29.0-33.0); MEAN CORPUSCULAR HGB CONC 33.9 g/dl (32.0-37.0); MEAN CORPUSCULAR VOLUME 90.2 fl (82.0-101.0); MEAN PLATELET VOLUME 9.9 fl (7.4-10.4); MONOCYTE # 0.6 10^3/ul (0.3-0.9); MONOCYTES % 10.6 % (0.0-11.0); NEUTROPHIL # 2.5 10^3/ul (1.6-7.5); PLATELET COUNT 219 10^3/UL (140-415); RED BLOOD COUNT 3.47 10^6/ul (4.70-6.10)
[2018-08-27 14:36] LABS: ANION GAP 10 (5-13); CALCIUM 9.3 mg/dl (8.4-10.2); CARBON DIOXIDE 24 mmol/L (21-31); CHLORIDE 107 mmol/L (97-110); Estimated GFR 57 mL/min (>60); GLUCOSE 152 mg/dl (70-220); POTASSIUM 4.4 mmol/L (3.5-5.1); SODIUM 141 mmol/L (135-144)
[2018-08-27 14:38] LABS: INR 0.95; PARTIAL THROMBOPLASTIN TIME 29.5 Sec (23.0-35.0); PROTIME 12.8 Sec (11.9-14.9)
[2018-08-27 14:40] LABS: CREATININE 1.29 mg/dl (0.61-1.24)
[2018-08-27 14:41] LABS: BLOOD UREA NITROGEN 29 mg/dl (7-20)
[2018-08-27] MEDS ORDERED: HEPARIN 1000 UNITS/ML 10 ML INJ (15:09)
[2018-08-27] MEDS ORDERED: IODIXANOL LOCM 100 ML BTL (15:09)
[2018-08-27] MEDS ORDERED: HEPARIN 1000 UNITS/NS (A-LINE) 1,000 ML (15:09)
[2018-08-27] MEDS ORDERED: LIDOCAINE 1% (MDV) 20 ML INJ (15:09)
[2018-08-27] MEDS ORDERED: MIDAZOLAM 1 MG/ML 2 ML INJ (15:54)
[2018-08-27] MEDS ORDERED: FENTAnyl 50 MCG/ML VIAL (15:57)
[2018-08-27] MEDS ORDERED: CLOPIDOGREL 300 MG TAB (17:07)
[2018-08-27] MEDS: CLOPIDOGREL 300 MG TAB PO (17:10)
== END 2018-08-27 19:15 | disposition home or self-care (01) ==
LOC: CCL 13:14 → SDS 13:14 → CCL 19:15
DX: E11.610 Type 2 diabetes mellitus with diabetic neuropathic arthropathy (principal); I73.9 Peripheral vascular disease, unspecified; I10 Essential (primary) hypertension
CPT/HCPCS: 37229; 75630; 80048; 82962; 85025; 85610; 85730

== ENCOUNTER 2018-09-04 14:26 | Inpatient (IN) | payer OTHER ==
[~2018-09-04 14:26] MED LIST: CEFAZOLIN 2 GM/50 ML (PMX) 50 ML IVPB
[2018-09-04] MEDS ORDERED: LIDOCAINE 2% (SDV) 5 ML INJ (18:16)
[2018-09-04] MEDS ORDERED: PROPOFOL 20 ML (18:16)
[2018-09-04] MEDS ORDERED: FENTAnyl 50 MCG/ML VIAL (18:17)
[2018-09-04] MEDS ORDERED: MIDAZOLAM 1 MG/ML 2 ML INJ (18:17)
[2018-09-04] MEDS ORDERED: ROPIVACAINE 0.5 % 30 ML VIAL (18:19)
[2018-09-04] MEDS ORDERED: ONDANSETRON 4 MG INJ IV ×2 (18:30→22:30)
[2018-09-04] MEDS ORDERED: DIPHENHYDRAMINE 50 MG INJ IV (18:30)
[2018-09-04] MEDS ORDERED: MEPERIDINE 25 MG INJ IV (18:30)
[2018-09-04] MEDS ORDERED: PROCHLORPERAZINE 10 MG INJ IV (18:30)
[2018-09-04] MEDS ORDERED: hydrALAzine 20 MG INJ IV (18:30)
[2018-09-04] MEDS ORDERED: HYDROmorphONE 1 MG/5 ML IV SYRINGE IV (18:30)
[2018-09-04] MEDS ORDERED: OXYCODONE/ACETAMINOPHEN (5/325) TAB PO (18:30)
[2018-09-04] MEDS ORDERED: LABETALOL HCL 20MG INJ IV (18:30)
[2018-09-04] MEDS ORDERED: FENTAnyl 50 MCG/ML VIAL IV ×2 (18:30)
[2018-09-04] MEDS ORDERED: EPHEDrine SULFATE 50 MG/5 ML SYG IV (18:30)
[2018-09-04] MEDS ORDERED: CEFAZOLIN 1 GM INJ (18:35)
[2018-09-04] MEDS ORDERED: PHENYLephrine (100 MCG/ML) 5ML SYG ×2 (18:37→22:01)
[2018-09-04] MEDS ORDERED: ONDANSETRON 4 MG INJ (18:50)
[2018-09-04] MEDS ORDERED: FAMOTIDINE 20 MG INJ (18:50)
[2018-09-04] MEDS: POLYMYXIN/BACITRACIN 1L IRRIG IRR (19:06)
[2018-09-04] MEDS ORDERED: NACL 0.9% 3 ML SYG IV (22:30)
[2018-09-04 22:51] LABS: ADD MAN DIFF? NO
[2018-09-04] MEDS: HYDROmorphONE 1 MG/5 ML IV SYRINGE IV ×3 (22:52→23:10)
[2018-09-04] MEDS: FENTAnyl 50 MCG/ML VIAL IV ×2 (22:54→23:06)
[2018-09-04 22:56] LABS: WHITE BLOOD COUNT 6.8 10^3/ul (4.8-10.8)
[2018-09-04 22:57] LABS: BASOPHILS % 0.3 % (0.0-2.0); EOSINOPHILS % 0.1 % (0.0-7.0); HEMATOCRIT 31.4 % (42.0-52.0); LYMPHOCYTES # 0.9 10^3/ul (0.8-2.9); LYMPHOCYTES % 12.6 % (15.0-51.0); MEAN CORPUSCULAR HEMOGLOBIN 30.8 pg (29.0-33.0); MEAN PLATELET VOLUME 8.8 fl (7.4-10.4); MONOCYTE # 0.4 10^3/ul (0.3-0.9); MONOCYTES % 5.6 % (0.0-11.0); NEUTROPHIL # 5.5 10^3/ul (1.6-7.5); PLATELET COUNT 209 10^3/UL (140-415); RED BLOOD COUNT 3.57 10^6/ul (4.70-6.10); RED CELL DISTRIBUTION WIDTH 13.6 % (11.5-14.5)
[2018-09-04 23:12] LABS: ALANINE AMINOTRANSFERASE 24 IU/L (13-69); ALBUMIN/GLOBULIN RATIO 1.21; ALKALINE PHOSPHATASE 55 IU/L (42-121); ANION GAP 12 (5-13); ASPARTATE AMINO TRANSFERASE 20 IU/L (15-46); BILIRUBIN,INDIRECT 0.6 mg/dl (0-1.1); BILIRUBIN,TOTAL 0.6 mg/dl (0.2-1.3); CALCIUM 8.9 mg/dl (8.4-10.2); CARBON DIOXIDE 24 mmol/L (21-31); CHLORIDE 101 mmol/L (97-110); CREATININE 1.23 mg/dl (0.61-1.24); Estimated GFR > 60 mL/min (>60); GLUCOSE 87 mg/dl (70-220); SODIUM 137 mmol/L (135-144); TOTAL PROTEIN 7.3 g/dl (6.1-8.1)
[2018-09-04 23:15] LABS: BLOOD UREA NITROGEN 23 mg/dl (7-20); POTASSIUM 5.2 mmol/L (3.5-5.1)
[2018-09-05] MEDS: SOD CHLORIDE 0.9% 1,000 ML IV (00:15)
[2018-09-05] MEDS ORDERED: DEXTROSE 50% 50 ML SYRINGE IV ×2 (05:00)
[2018-09-05] MEDS ORDERED: GLUCOSE GEL 15 GRAM TUBE PO ×2 (05:00)
[2018-09-05] MEDS ORDERED: GLUCOSE GEL 15 GRAM TUBE BUCCAL (05:00)
[2018-09-05] MEDS ORDERED: GLUCAGON 1 MG INJ IM (05:00)
[2018-09-05 05:17] LABS: ADD MAN DIFF? NO
[2018-09-05 05:22] LABS: WHITE BLOOD COUNT 7.9 10^3/ul (4.8-10.8)
[2018-09-05 05:22] LABS: BASOPHILS % 0.4 % (0.0-2.0); EOSINOPHILS % 0.3 % (0.0-7.0); HEMATOCRIT 32.1 % (42.0-52.0); LYMPHOCYTES # 1.7 10^3/ul (0.8-2.9); LYMPHOCYTES % 21.7 % (15.0-51.0); MEAN CORPUSCULAR HEMOGLOBIN 30.7 pg (29.0-33.0); MEAN CORPUSCULAR HGB CONC 34.3 g/dl (32.0-37.0); MEAN CORPUSCULAR VOLUME 89.7 fl (82.0-101.0); MEAN PLATELET VOLUME 9.6 fl (7.4-10.4); MONOCYTE # 0.9 10^3/ul (0.3-0.9); MONOCYTES % 10.7 % (0.0-11.0); NEUTROPHIL # 5.3 10^3/ul (1.6-7.5); NEUTROPHILS % 66.4 % (39.0-77.0); PLATELET COUNT 221 10^3/UL (140-415); RED BLOOD COUNT 3.58 10^6/ul (4.70-6.10); RED CELL DISTRIBUTION WIDTH 13.7 % (11.5-14.5)
[2018-09-05 05:41] LABS: HEMOGLOBIN A1C 6.9 % (0-5.9)
[2018-09-05 05:51] LABS: ALANINE AMINOTRANSFERASE 22 IU/L (13-69); ALBUMIN 3.8 g/dl (3.3-4.9); ALBUMIN/GLOBULIN RATIO 1.22; ALKALINE PHOSPHATASE 46 IU/L (42-121); ANION GAP 9 (5-13); ASPARTATE AMINO TRANSFERASE 21 IU/L (15-46); BILIRUBIN,INDIRECT 0.9 mg/dl (0-1.1); BILIRUBIN,TOTAL 0.9 mg/dl (0.2-1.3); BLOOD UREA NITROGEN 22 mg/dl (7-20); CALCIUM 9.1 mg/dl (8.4-10.2); CARBON DIOXIDE 28 mmol/L (21-31); CHLORIDE 102 mmol/L (97-110); CREATININE 1.24 mg/dl (0.61-1.24); Estimated GFR > 60 mL/min (>60); GLUCOSE 217 mg/dl (70-220); POTASSIUM 5.1 mmol/L (3.5-5.1); SODIUM 139 mmol/L (135-144); TOTAL PROTEIN 6.9 g/dl (6.1-8.1)
[2018-09-05 05:53] LABS: MAGNESIUM 1.2 mg/dl (1.7-2.5)
[2018-09-05 05:53] LABS: CHOL/HDL RATIO 3.4 RATIO; CHOLESTEROL 111 mg/dl (100-200); HDL CHOLESTEROL 32 mg/dl (28-71); LDL CHOLESTEROL,CALCULATED 63 mg/dl; TRIGLYCERIDES 78 mg/dl (0-149)
[2018-09-05] MEDS: morphine 2 MG INJ IV ×2 (07:28→21:53)
[2018-09-05] MEDS: ASPIRIN 81 MG TAB PO (08:43)
[2018-09-05] MEDS: GABAPENTIN 100 MG CAP PO ×3 (08:43→20:07)
[2018-09-05] MEDS: INSULIN ASPART [NOVOLOG] 3 ML PEN SC ×4 (08:49→21:49)
[2018-09-05] MEDS: HYDROCODONE/APAP (5/325) TAB PO (12:51)
[2018-09-05] MEDS: ATORVASTATIN 20 MG TAB PO (20:07)
[2018-09-05] MEDS: MAGNESIUM SULFATE 3 GM in DEXTROSE 5% 100 ML IVPB (20:07)
[2018-09-05] MEDS ORDERED: INSULIN GLARGINE [LANtus] 3 ML PEN SC (21:00)
[2018-09-05] MEDS: ACETAMINOPHEN 325 MG TAB PO (21:47)
[2018-09-05] MEDS: INSULIN GLARGINE [LANTus] (100 UNITS/ML) SYG SC (21:50)
[2018-09-06] MEDS: ACCU-CHEK XX (03:00)
[2018-09-06 05:57] LABS: ADD MAN DIFF? NO
[2018-09-06 06:05] LABS: ABNORMAL IP MESSAGE 1; BASOPHIL # 0.1 10^3/ul (0.0-0.1); BASOPHILS % 0.5 % (0.0-2.0); EOSINOPHILS # 0.1 10^3/ul (0.0-0.5); EOSINOPHILS % 0.6 % (0.0-7.0); HEMATOCRIT 35.1 % (42.0-52.0); HEMOGLOBIN 11.9 g/dl (14.0-18.0); LYMPHOCYTES # 2.3 10^3/ul (0.8-2.9); LYMPHOCYTES % 23.2 % (15.0-51.0); MEAN CORPUSCULAR HEMOGLOBIN 30.3 pg (29.0-33.0); MEAN CORPUSCULAR HGB CONC 33.9 g/dl (32.0-37.0); MEAN CORPUSCULAR VOLUME 89.3 fl (82.0-101.0); MEAN PLATELET VOLUME 9.3 fl (7.4-10.4); MONOCYTE # 1.7 10^3/ul (0.3-0.9); MONOCYTES % 17.6 % (0.0-11.0); NEUTROPHIL # 5.6 10^3/ul (1.6-7.5); NEUTROPHILS % 57.7 % (39.0-77.0); PLATELET COUNT 223 10^3/UL (140-415); POSITIVE DIFF @See below; RED BLOOD COUNT 3.93 10^6/ul (4.70-6.10); RED CELL DISTRIBUTION WIDTH 13.4 % (11.5-14.5)
[2018-09-06 06:05] LABS: WHITE BLOOD COUNT 9.8 10^3/ul (4.8-10.8)
[2018-09-06 06:40] LABS: ALANINE AMINOTRANSFERASE 17 IU/L (13-69); ALBUMIN 4.3 g/dl (3.3-4.9); ALBUMIN/GLOBULIN RATIO 1.19; ALKALINE PHOSPHATASE 50 IU/L (42-121); ANION GAP 11 (5-13); ASPARTATE AMINO TRANSFERASE 19 IU/L (15-46); BILIRUBIN,INDIRECT 1.8 mg/dl (0-1.1); BILIRUBIN,TOTAL 1.8 mg/dl (0.2-1.3); BLOOD UREA NITROGEN 20 mg/dl (7-20); CALCIUM 9.8 mg/dl (8.4-10.2); CARBON DIOXIDE 31 mmol/L (21-31); CHLORIDE 98 mmol/L (97-110); CREATININE 1.31 mg/dl (0.61-1.24); Estimated GFR 56 mL/min (>60); GLUCOSE 117 mg/dl (70-220); POTASSIUM 4.5 mmol/L (3.5-5.1); SODIUM 140 mmol/L (135-144); TOTAL PROTEIN 7.9 g/dl (6.1-8.1)
[2018-09-06 06:55] LABS: PHOSPHORUS 3.7 mg/dl (2.5-4.9)
[2018-09-06 06:55] LABS: CHOL/HDL RATIO 3.1 RATIO; CHOLESTEROL 116 mg/dl (100-200); HDL CHOLESTEROL 37 mg/dl (28-71); LDL CHOLESTEROL,CALCULATED 62 mg/dl; MAGNESIUM 2.1 mg/dl (1.7-2.5); TRIGLYCERIDES 86 mg/dl (0-149)
[2018-09-06] MEDS: INSULIN ASPART [NOVOLOG] 3 ML PEN SC ×4 (08:00→20:48)
[2018-09-06] MEDS: ASPIRIN 81 MG TAB PO (08:11)
[2018-09-06] MEDS: GABAPENTIN 100 MG CAP PO ×3 (08:11→20:42)
[2018-09-06] MEDS: morphine 2 MG INJ IV ×2 (08:14→14:12)
[2018-09-06] MEDS: ENOXAPARIN 40 MG/0.4 ML SYG SC (08:15)
[2018-09-06] MEDS: ACETAMINOPHEN 325 MG TAB PO (14:17)
[2018-09-06] MEDS: SOD CHLORIDE 0.9% 1,000 ML IV (15:39)
[2018-09-06] MEDS ORDERED: CEFTRIAXONE 500 MG in SOD CHLORIDE 0.9% 50 ML IVPB (18:30)
[2018-09-06] MEDS: ATORVASTATIN 20 MG TAB PO (20:42)
[2018-09-06] MEDS: INSULIN GLARGINE [LANTus] (100 UNITS/ML) SYG SC (20:47)
[2018-09-06] MEDS: CEFAZOLIN 2 GM/50 ML (PMX) 50 ML IVPB (22:11)
[2018-09-07] MEDS: ACCU-CHEK XX (02:00)
[2018-09-07] MEDS: ACETAMINOPHEN 325 MG TAB PO (02:07)
[2018-09-07] MEDS: CEFAZOLIN 2 GM/50 ML (PMX) 50 ML IVPB ×2 (06:10→13:03)
[2018-09-07 06:30] LABS: ADD MAN DIFF? NO
[2018-09-07 06:50] LABS: BASOPHILS % 0.3 % (0.0-2.0); EOSINOPHILS % 0.3 % (0.0-7.0); HEMATOCRIT 31.1 % (42.0-52.0); HEMOGLOBIN 10.9 g/dl (14.0-18.0); LYMPHOCYTES # 2.3 10^3/ul (0.8-2.9); LYMPHOCYTES % 25.9 % (15.0-51.0); MEAN CORPUSCULAR VOLUME 88.4 fl (82.0-101.0); MEAN PLATELET VOLUME 9.5 fl (7.4-10.4); MONOCYTE # 1.3 10^3/ul (0.3-0.9); MONOCYTES % 14.6 % (0.0-11.0); NEUTROPHIL # 5.3 10^3/ul (1.6-7.5); NEUTROPHILS % 58.6 % (39.0-77.0); PLATELET COUNT 221 10^3/UL (140-415); RED BLOOD COUNT 3.52 10^6/ul (4.70-6.10)
[2018-09-07 07:31] LABS: MAGNESIUM 1.7 mg/dl (1.7-2.5)
[2018-09-07 07:31] LABS: PHOSPHORUS 3.2 mg/dl (2.5-4.9)
[2018-09-07] MEDS: INSULIN ASPART [NOVOLOG] 3 ML PEN SC ×5 (07:57→20:58)
[2018-09-07 08:10] LABS: ANION GAP 12 (5-13); BLOOD UREA NITROGEN 19 mg/dl (7-20); CARBON DIOXIDE 25 mmol/L (21-31); CHLORIDE 99 mmol/L (97-110); CREATININE 1.24 mg/dl (0.61-1.24); Estimated GFR > 60 mL/min (>60); GLUCOSE 102 mg/dl (70-220); POTASSIUM 4.2 mmol/L (3.5-5.1); SODIUM 136 mmol/L (135-144)
[2018-09-07 08:11] LABS: ALANINE AMINOTRANSFERASE 12 IU/L (13-69); ALBUMIN 3.9 g/dl (3.3-4.9); ALBUMIN/GLOBULIN RATIO 1.11; ALKALINE PHOSPHATASE 45 IU/L (42-121); ASPARTATE AMINO TRANSFERASE 15 IU/L (15-46); BILIRUBIN,INDIRECT 1.6 mg/dl (0-1.1); BILIRUBIN,TOTAL 1.6 mg/dl (0.2-1.3); CALCIUM 9.4 mg/dl (8.4-10.2); TOTAL PROTEIN 7.4 g/dl (6.1-8.1)
[2018-09-07] MEDS: GABAPENTIN 100 MG CAP PO ×3 (08:15→20:55)
[2018-09-07] MEDS: ASPIRIN 81 MG TAB PO (08:15)
[2018-09-07] MEDS: HYDROCODONE/APAP (5/325) TAB PO ×3 (08:15→20:55)
[2018-09-07] MEDS: ENOXAPARIN 40 MG/0.4 ML SYG SC (08:17)
[2018-09-07] MEDS: DOCUSATE SODIUM 100 MG CAP PO ×2 (08:25→21:36)
[2018-09-07 15:37] LABS: CREATININE, RANDOM URINE 29 mg/dL (20-320); MICROALBUMIN 0.2 mg/dL; MICROALBUMIN/CREATININE RATIO 7 (<30)
[2018-09-07] MEDS: LACTOBACILLUS RHAMNOSUS CAP PO (20:55)
[2018-09-07] MEDS: ATORVASTATIN 20 MG TAB PO (20:55)
[2018-09-07] MEDS: INSULIN GLARGINE [LANTus] (100 UNITS/ML) SYG SC (21:00)
[2018-09-07] MEDS: PIPER-TAZO 3.375 GM IV (PMX) 100 ML IVPB (21:08)
[2018-09-08] MEDS: ACCU-CHEK XX (01:12)
[2018-09-08] MEDS: ACETAMINOPHEN 325 MG TAB PO (01:49)
[2018-09-08 05:55] LABS: ADD MAN DIFF? NO
[2018-09-08 05:57] LABS: BASOPHILS % 0.5 % (0.0-2.0); EOSINOPHILS # 0.3 10^3/ul (0.0-0.5); EOSINOPHILS % 4.4 % (0.0-7.0); HEMATOCRIT 28.3 % (42.0-52.0); HEMOGLOBIN 9.9 g/dl (14.0-18.0); LYMPHOCYTES # 2.2 10^3/ul (0.8-2.9); LYMPHOCYTES % 29.5 % (15.0-51.0); MEAN CORPUSCULAR HEMOGLOBIN 30.7 pg (29.0-33.0); MEAN CORPUSCULAR VOLUME 87.6 fl (82.0-101.0); MEAN PLATELET VOLUME 9.4 fl (7.4-10.4); MONOCYTE # 1.2 10^3/ul (0.3-0.9); MONOCYTES % 15.3 % (0.0-11.0); NEUTROPHIL # 3.8 10^3/ul (1.6-7.5); PLATELET COUNT 215 10^3/UL (140-415); RED BLOOD COUNT 3.23 10^6/ul (4.70-6.10)
[2018-09-08 05:57] LABS: WHITE BLOOD COUNT 7.5 10^3/ul (4.8-10.8)
[2018-09-08] MEDS: BISACODYL (EC) 5 MG TAB PO (06:06)
[2018-09-08] MEDS: PIPER-TAZO 3.375 GM IV (PMX) 100 ML IVPB ×2 (06:06→13:24)
[2018-09-08] MEDS: HYDROCODONE/APAP (5/325) TAB PO ×5 (06:07→21:01)
[2018-09-08 06:20] LABS: ALANINE AMINOTRANSFERASE 22 IU/L (13-69); ALBUMIN 3.7 g/dl (3.3-4.9); ALBUMIN/GLOBULIN RATIO 1.05; ALKALINE PHOSPHATASE 46 IU/L (42-121); ANION GAP 10 (5-13); ASPARTATE AMINO TRANSFERASE 14 IU/L (15-46); BILIRUBIN,INDIRECT 1.1 mg/dl (0-1.1); BILIRUBIN,TOTAL 1.1 mg/dl (0.2-1.3); BLOOD UREA NITROGEN 22 mg/dl (7-20); CALCIUM 9.3 mg/dl (8.4-10.2); CARBON DIOXIDE 29 mmol/L (21-31); CHLORIDE 96 mmol/L (97-110); CREATININE 1.21 mg/dl (0.61-1.24); Estimated GFR > 60 mL/min (>60); GLUCOSE 96 mg/dl (70-220); POTASSIUM 4.4 mmol/L (3.5-5.1); SODIUM 135 mmol/L (135-144); TOTAL PROTEIN 7.2 g/dl (6.1-8.1)
[2018-09-08 06:33] LABS: MAGNESIUM 1.7 mg/dl (1.7-2.5)
[2018-09-08 06:33] LABS: PHOSPHORUS 3.9 mg/dl (2.5-4.9)
[2018-09-08] MEDS: INSULIN ASPART [NOVOLOG] 3 ML PEN SC ×7 (08:00→21:08)
[2018-09-08] MEDS: GABAPENTIN 100 MG CAP PO ×3 (08:26→21:01)
[2018-09-08] MEDS: ASPIRIN 81 MG TAB PO (08:26)
[2018-09-08] MEDS: ENOXAPARIN 40 MG/0.4 ML SYG SC (08:26)
[2018-09-08] MEDS: LACTOBACILLUS RHAMNOSUS CAP PO ×2 (08:26→21:01)
[2018-09-08] MEDS: DOCUSATE SODIUM 100 MG CAP PO (15:59)
[2018-09-08] MEDS: MAGNESIUM HYDROXIDE 30ML CUP PO (16:17)
[2018-09-08] MEDS: ATORVASTATIN 20 MG TAB PO (21:01)
[2018-09-08] MEDS: INSULIN GLARGINE [LANTus] (100 UNITS/ML) SYG SC (21:08)
[2018-09-08] MEDS: CEFAZOLIN 1 GM/50 ML (PMX) 50 ML IVPB (21:09)
[2018-09-09] MEDS: ACCU-CHEK XX (02:00)
[2018-09-09] MEDS: CEFAZOLIN 1 GM/50 ML (PMX) 50 ML IVPB ×3 (06:05→22:05)
[2018-09-09] MEDS: BISACODYL (EC) 5 MG TAB PO (06:05)
[2018-09-09] MEDS: HYDROCODONE/APAP (5/325) TAB PO ×2 (06:07→11:18)
[2018-09-09] MEDS: INSULIN ASPART [NOVOLOG] 3 ML PEN SC ×7 (08:02→20:41)
[2018-09-09] MEDS: LACTOBACILLUS RHAMNOSUS CAP PO ×2 (08:59→20:35)
[2018-09-09] MEDS: ASPIRIN 81 MG TAB PO (08:59)
[2018-09-09] MEDS: GABAPENTIN 100 MG CAP PO ×3 (09:00→20:35)
[2018-09-09] MEDS: ENOXAPARIN 40 MG/0.4 ML SYG SC (09:02)
[2018-09-09] MEDS: MAGNESIUM HYDROXIDE 30ML CUP PO (15:16)
[2018-09-09] MEDS: morphine 2 MG INJ IV (19:32)
[2018-09-09] MEDS: ATORVASTATIN 20 MG TAB PO (20:35)
[2018-09-09] MEDS: INSULIN GLARGINE [LANTus] (100 UNITS/ML) SYG SC (20:40)
[2018-09-09] MEDS: DOCUSATE SODIUM 100 MG CAP PO (20:47)
[2018-09-10] MEDS: ACCU-CHEK XX (02:00)
[2018-09-10] MEDS: CEFAZOLIN 1 GM/50 ML (PMX) 50 ML IVPB ×2 (05:36→16:25)
[2018-09-10] MEDS: GABAPENTIN 100 MG CAP PO ×2 (08:19→12:16)
[2018-09-10] MEDS: ASPIRIN 81 MG TAB PO (08:19)
[2018-09-10] MEDS: LACTOBACILLUS RHAMNOSUS CAP PO (08:19)
[2018-09-10] MEDS: HYDROCODONE/APAP (5/325) TAB PO (08:20)
[2018-09-10] MEDS: INSULIN ASPART [NOVOLOG] 3 ML PEN SC ×4 (08:23→12:27)
[2018-09-10] MEDS: ENOXAPARIN 40 MG/0.4 ML SYG SC (08:25)
[2018-09-10] MEDS: morphine 2 MG INJ IV (12:16)
[2018-09-10] MEDS: BISACODYL (EC) 5 MG TAB PO (12:16)
== END 2018-09-10 18:00 | DRG 42 ==
LOC: REC 14:26 → 2NE 22:17
PROVIDERS: Podiatrist Foot & Ankle Surgery
PROC: 0SGH07Z Fusion of Right Tarsal Joint with Autologous Tissue Substitute, Open Approach (ICD-10-PCS; principal; 2018-09-04 17:00)
PROC: 0L8V0ZZ Division of Right Foot Tendon, Open Approach (ICD-10-PCS; 2018-09-04 17:00)
PROC: 0SRP0JZ Replacement of Right Toe Phalangeal Joint with Synthetic Substitute, Open Approach (ICD-10-PCS; 2018-09-04 17:00)
PROC: 0QHN35Z Insertion of External Fixation Device into Right Metatarsal, Percutaneous Approach (ICD-10-PCS; 2018-09-04 17:00)
PROC: 0QHG35Z Insertion of External Fixation Device into Right Tibia, Percutaneous Approach (ICD-10-PCS; 2018-09-04 17:00)
PROC: 0QHL35Z Insertion of External Fixation Device into Right Tarsal, Percutaneous Approach (ICD-10-PCS; 2018-09-04 17:00)
PROC: 0YP90YZ Removal of Other Device from Right Lower Extremity, Open Approach (ICD-10-PCS; 2018-09-04 17:00)
DX: E11.610 Type 2 diabetes mellitus with diabetic neuropathic arthropathy (principal); M20.41 Other hammer toe(s) (acquired), right foot; E11.42 Type 2 diabetes mellitus with diabetic polyneuropathy; E11.319 Type 2 diabetes mellitus with unspecified diabetic retinopathy without macular edema; D63.8 Anemia in other chronic diseases classified elsewhere; E78.5 Hyperlipidemia, unspecified; H54.62 Unqualified visual loss, left eye, normal vision right eye; I10 Essential (primary) hypertension; N40.0 Benign prostatic hyperplasia without lower urinary tract symptoms; R53.81 Other malaise; R50.82 Postprocedural fever; Z89.432 Acquired absence of left foot; Z87.891 Personal history of nicotine dependence; Z79.4 Long term (current) use of insulin; Z79.02 Long term (current) use of antithrombotics/antiplatelets; Z79.82 Long term (current) use of aspirin
CPT/HCPCS: 71045; 73610-RT; 73620; 73630; 80053; 80061; 82043; 82962; 83036; 83735; 84100; 84443; 85025; 87040; 87086; 97110; 97116; 97162; 97167; 97530; 97535

== ENCOUNTER 2018-12-24 11:10 | Day surgery (SDC) | payer MEDICARE, OTHER ==
[2018-12-24] MEDS ORDERED: DESFLURANE 15 MIN (13:28)
[2018-12-24] MEDS ORDERED: LIDOCAINE 2% (SDV) 5 ML INJ (13:28)
[2018-12-24] MEDS ORDERED: PROPOFOL 20 ML (13:28)
[2018-12-24] MEDS ORDERED: MIDAZOLAM 1 MG/ML 2 ML INJ (13:29)
[2018-12-24] MEDS ORDERED: FENTAnyl 50 MCG/ML VIAL (13:29)
[2018-12-24] MEDS ORDERED: ROPIVACAINE 0.5 % 30 ML VIAL (13:30)
[2018-12-24] MEDS ORDERED: ONDANSETRON 4 MG INJ IV (13:30)
[2018-12-24] MEDS ORDERED: HYDROmorphONE 1 MG/5 ML IV SYRINGE IV ×3 (13:30)
[2018-12-24] MEDS ORDERED: CEFAZOLIN 1 GM INJ (13:41)
[2018-12-24] MEDS ORDERED: ONDANSETRON 4 MG INJ (14:15)
== END 2018-12-24 17:10 | disposition home or self-care (01) ==
LOC: SDS 11:10
DX: Z47.2 Encounter for removal of internal fixation device (principal); E11.42 Type 2 diabetes mellitus with diabetic polyneuropathy; E11.610 Type 2 diabetes mellitus with diabetic neuropathic arthropathy; Z89.431 Acquired absence of right foot; Z79.82 Long term (current) use of aspirin; Z79.4 Long term (current) use of insulin
CPT/HCPCS: 20694; 73620-52; 82962